=== PATIENT | male | born 1960 | race Two or more races ===

== ENCOUNTER 2023-07-20 04:17 | Inpatient (IN) | payer OTHER, SELFPAY ==
[2023-07-20] VITALS (18 sets, daily range): BP systolic 110–144; BP diastolic 53–86; PULSE 89–130; RESP 12–24; TEMP 36.3–36.9; O2SAT 94–100; BMI 37.1; BMI 37.5
--- NOTE | ~2023-07-20 | US_ITS ---
EXAMINATION: US ABDOMEN LIMITED, bowel duct and main portal vein CLINICAL INFORMATION: Follow-up CT scan 07/20/2023. COMPARISON: CT scan 07/20/2023 TECHNIQUE: Real-time imaging of the right upper quadrant abdominal viscera. FINDINGS: Exam is limited, bowel gas obscures abdominal organs. Nodular surface of the liver suggesting liver parenchymal disease liver cirrhosis. Common bile duct normal diameter 5 mm. There is intrahepatic biliary dilatation. There is a free fluid in the abdomen ascites. There is minimal to no flow seen in the main portal vein raises concern for possible portal vein thrombosis. US/US abdomen limited IMPRESSION: *No flow in the main portal vein suspect portal vein thrombosis. *Heterogeneously echogenic liver, liver cirrhosis. *Ascites. *Mild intra biliary dilatation. Common bile duct is not dilated 5 mm. *consider correlation with follow-up contrast enhanced MRI/MRV.
--- NOTE | ~2023-07-20 | XR_ITS ---
EXAMINATION: XR ABDOMEN KUB CLINICAL INDICATION: Follow-up intestinal obstruction COMPARISON: CT scan from one day earlier. TECHNIQUE: AP view of the abdomen. FINDINGS: Redemonstration of mildly dilated small bowel loops compatible with patient history of obstruction seen on this CT scan. Nasogastric tube in place. Left hip prosthesis in place. Skeletal structures unremarkable. Surgical clips right upper quadrant from prior cholecystectomy. XR/XR abdomen 1V IMPRESSION: Redemonstration of mildly dilated small bowel loops compatible with patient history of small bowel obstruction.
--- NOTE | ~2023-07-20 | NM_ITS ---
Examination: Nuclear medicine GI bleeding scan. CLINICAL INDICATION: Recurrent rectal bleeding. COMPARISON: None. TECHNIQUE: Following labeling of red blood cells with 25 mCi of 90 9M technetium pertechnetate, immediate 4 second per images obtained 1 minute followed by 1 minute images obtained to 60 minutes were obtained over the abdomen. FINDINGS: On immediate perfusion images there is normal activity seen in the spleen and abdominal aorta and common iliac arteries. There is diffuse increase activity seen in pelvis which corresponds to area of likely site of inflammation, hernia and small bowels obstruction site on the recent CT abdomen 07/20/2023.. 1 minute static images no abnormal metabolic activity seen in the bowel loops to suspect any site of bleed. NM/NM GI bleeding IMPRESSION: No definite abnormal GI bleeding site seen at this time. There is mild increase activity seen in the right pelvis which is a suspected site of small bowel obstruction, right abdominal hernia and inflammatory process.
--- NOTE | ~2023-07-20 | XR_ITS ---
EXAMINATION: XR CHEST CLINICAL INFORMATION: Confirmation of NG tube placement COMPARISON: Same day earlier TECHNIQUE: AP upright portable exam of the chest performed at 8:20 AM. FINDINGS: The newly placed lines and gastric tube is in shallow position and need to be advanced. Both tip and port of the tube are in the esophagus. The tube can't be used. The position of infusion catheter is stable with the tip over the SVC. Pacemaker leads are in stable position. Lungs of low volume without infiltrates. Cardiomediastinal silhouette is unremarkable. XR/XR chest 1V IMPRESSION: Malpositioned NG tube, can't be used.
--- NOTE | ~2023-07-20 | CT_ITS ---
EXAMINATION: CT ABDOMEN AND PELVIS WITHOUT CONTRAST CLINICAL INFORMATION: Diffuse abdominal pain, known metastatic colon cancer, question small bowel obstruction COMPARISON: None available. TECHNIQUE: Multidetector volumetric imaging was performed from the superior aspect of the liver through the pubic symphysis. Sagittal and coronal reformatted images were obtained on the technologist's workstation. This CT examination was performed using dose optimization techniques as appropriate, variously including the following: *Automated exposure control *Adjustment of mA and/or kV according to patient size (this includes techniques or standardized protocols for targeted exams where dose is matched to indication/reason for exam; i.e. extremities or head) *Use of iterative reconstruction technique DLP: 855 mGy-cm FINDINGS: LUNG BASES: Several scattered bibasilar lung nodules are present measuring up to 1.2 cm, suspicious for metastases given the clinical history. Coronary artery calcifications are present. LIVER, GALLBLADDER, AND BILIARY TREE: Liver is suboptimally assessed without intravenous contrast. However, there are suspected mildly hypoattenuating right hepatic lobe masses which are not clearly defined though suspicious for hepatic metastases. Several scattered small calcific densities are noted in the left hepatic lobe. Status post cholecystectomy. PANCREAS: Unremarkable. SPLEEN: Enlarged, measuring greater than 17 cm in the axial plane. ADRENAL GLANDS: Slightly thickened right adrenal. Left adrenal gland is unremarkable. KIDNEYS AND URETERS: No hydronephrosis or obstructing calculus bilaterally. BLADDER: Mildly distended and not well evaluated. GASTROINTESTINAL TRACT: There are multiple fluid-filled and gas-filled dilated small bowel loops throughout the mid to lower abdomen in a pattern suspicious for small bowel obstruction. Transition site may occur in the right abdomen where there appears to be operative tapering of a dilated fluid-filled segments with soft tissue thickening and surrounding stranding such as on coronal image 53. Large bowel is nondilated. Appendix appears collapsed. Rectosigmoid suture line noted. Small amount of free fluid is present. No free air is seen. ABDOMINAL WALL: There is a ventral hernia containing multiple segments of small bowel which are not significantly dilated. Fat-containing left inguinal hernia. LYMPH NODES: No significant lymphadenopathy is seen. There is mesenteric stranding and some wispy areas of ill-defined soft tissue attenuation anteriorly in the region of the omentum, which could reflect peritoneal carcinomatosis. VASCULAR: Moderate atherosclerotic calcification. PELVIC VISCERA: Prostate gland appears prominent. OSSEOUS STRUCTURES: Degenerative changes are noted in the spine. Status post left total hip arthroplasty. CT/CT abdomen pelvis wo IV con IMPRESSION: 1. Small bowel obstruction with transition point suspected in the right abdomen. 2. Ventral hernia containing multiple segments of small bowel, without significant dilation. 3. Small amount of free fluid. 4. Multiple bibasilar lung nodules, suspicious for metastases. 5. Hepatic masses also suspicious for metastases, suboptimally assessed without intravenous contrast. 6. Splenomegaly. 7. Ill-defined foci of soft tissue attenuation in the region of the omentum, which could reflect peritoneal carcinomatosis. 8. Coronary artery calcifications. Correlation with cardiac risk factors is recommended.
--- NOTE | ~2023-07-20 | XR_ITS ---
EXAMINATION: XR CHEST CLINICAL INFORMATION: Preop COMPARISON: None available. TECHNIQUE: AP portable view of the chest was obtained. FINDINGS: There is no evidence of acute parenchymal disease, pneumothorax, or pleural effusion. Heart normal size. No evidence of pulmonary edema. Right internal jugular port catheter seen in place with tip of catheter at the cavoatrial junction. Pacemaker seen in place. There is a 1.3 cm circumscribed density seen overlying the posterior aspect of the right sixth rib in patient with history of metastatic colon cancer consistent with metastatic lesion. Other known lung nodules are not definitely identified on this plain film study. Patient appears be status post bilateral shoulder decompressive surgery. XR/XR chest 1V IMPRESSION: No acute disease. Circumscribed density central right chest as described.
--- NOTE | ~2023-07-20 | CT_ITS ---
EXAMINATION: CT ABDOMEN AND PELVIS WITH CONTRAST CLINICAL INFORMATION: Evaluate portal vein thrombus COMPARISON: Previous CT of the abdomen and pelvis 07/20/2023 and limited abdominal ultrasound 07/22/2023 TECHNIQUE: Multidetector volumetric images were obtained from the superior aspect of the liver through the pubic symphysis following administration 85 mL of Omnipaque 350 intravenous contrast. Sagittal and coronal reformatted images were obtained on the technologist's workstation. Oral contrast: Yes This CT examination was performed using dose optimization techniques as appropriate, variously including the following: *Automated exposure control *Adjustment of mA and/or kV according to patient size (this includes techniques or standardized protocols for targeted exams where dose is matched to indication/reason for exam; i.e. extremities or head) *Use of iterative reconstruction technique DLP: 834 mGy-cm FINDINGS: LUNG BASES: Bilateral pulmonary nodules largest measuring 1.2 cm similar to recent exam. Pacemaker AICD leads. Severe coronary artery calcification. LIVER, GALLBLADDER, AND BILIARY TREE: There are multiple low-attenuation liver lesions. Largest lesion is in the central left lobe of the liver measuring 4 x 4.6 cm axial image 22 series 3 and in the right lobe of the liver measuring 4 cm axial image 32 series 3. There is intrahepatic biliary duct dilatation likely secondary to central liver masses, left side greater than right. There are surgical clips and the gallbladder has likely been removed. The splenic vein, SMV, and main portal veins are patent. There may be narrowing of the right and left portal veins in the central liver versus partial occlusion. There is some opacification of the portal veins more peripherally seen in both the right and left lobes of the liver. There is a recannulized paraumbilical vein. There are upper abdominal varices. The hepatic veins are patent. There is a small amount of ascites. PANCREAS: Unremarkable. SPLEEN: Enlarged spleen measuring 18 cm in the axial plane. ADRENAL GLANDS: Slight thickening or nodularity of the right adrenal gland. The left adrenal gland is normal. KIDNEYS AND URETERS: The kidneys are normal in size, shape, and attenuation. No hydronephrosis, hydroureter, or calculi seen. No perinephric stranding. BLADDER: Not optimally distended. GASTROINTESTINAL TRACT: There are surgical clips in the rectosigmoid region. There is diverticulosis of the colon. There is diffuse wall thickening and wall edema of the right transverse and left colon. Appearance is suggestive of mild colitis. The appendix is normal. There is wall thickening of the duodenum. There are fluid-filled loops of more distal small bowel. There is wall thickening and edema of small bowel loops in the right lower quadrant. A large ventral hernia containing fat and loops of small bowel. There is a surgical staple line seen in small bowel loops which are in the neck of the hernia. The neck of the hernia appears wide or broad-based and does not appear to be the site of obstruction. There is diffuse fat stranding and edema of the small bowel mesentery. In comparison with recent exam 07/20/2023 small bowel loops appear less dilated. Wall thickening and edema of small bowel loops and stranding of the small bowel mesentery and ascites all appear increased. ABDOMINAL WALL: There is a large broad-based complex on midline ventral or supraumbilical hernia. Large component is broad-based with a wide neck. There are adjacent smaller components with narrower next. Hernia sacs contain varices, small bowel loops and fat and ascitic fluid. No definite caliber change of a small bowel to confirm this as a site of small bowel obstruction is seen. There is a more inferior umbilical hernia containing fat. There is overlying stranding of the fat and skin thickening over the hernia sacs. There is a left inguinal hernia containing fat and some of the bladder. LYMPH NODES: There are small retroperitoneal lymph nodes. No enlarged lymph nodes are seen. There is what appears to be loculated ascitic fluid superiorly in the gastrohepatic hepatic region for example axial image 29 series 3. VASCULAR: There is atherosclerotic disease. The SMA is patent however there is narrowing of the mid SFA from questionable plaque or difficult to exclude thrombus for example coronal reconstructed images 45-48. The SMV is patent. The JOHN appears very small and difficult to evaluate. There is significant fat stranding and possibly abnormal high attenuation soft tissue seen surrounding the JOHN for example axial image 50 05/27/1961 and coronal reconstructed image 56. There is adjacent amorphous increased attenuation for example axial image 62 series 3 and coronal reconstructed image 57. Appearance is questionable for hemorrhage. Vascular etiology of increasing enterocolitis should be considered. The IMV appears patent. There is a ectasia and plaque in the right common iliac artery measuring up to 1.9 cm for example axial image 69 series 3. PELVIC VISCERA: The prostate gland appears prominent measuring 4 x 5 cm in AP and transverse dimensions. The prostate gland appears diffusely decreased attenuation questionable for prostatitis. OSSEOUS STRUCTURES: There are degenerative changes of the spine. There is a left hip replacement. There are mild degenerative changes at the right hip joint. CT/CT abdomen pelvis w IV con IMPRESSION: Multiple liver suggestive of malignancy. Secondary intrahepatic biliary duct dilatation from central liver masses. Splenic vein, portal splenic confluence and extrahepatic main portal vein are patent. There appears to be narrowing or possibly nonocclusive thrombus of the central right and left main portal veins due to the central liver masses. The more peripheral right and left portal veins appear patent. Patent hepatic veins and IVC. Enlarged spleen. Varices Increased wall thickening and edema of the small and large bowel questionable for enterocolitis. Interval increase in ascites. Abnormal appearance of the SMA and JOHN,.. Possible vascular etiology of increasing enterocolitis should be considered. Correlation with serum lactate recommended. Small bowel appears less dilated than seen on 07/20/2023. Complex abdominal wall hernias and left inguinal hernia containing some of the bladder. Fleischner guidelines were followed. Findings will be communicated by the [facility] pastrycook.
[2023-07-20 05:23] LABS: Basophils Percent Auto 0.5 % (0-2); Eosinophils Absolute Auto 0.1 X10*3/uL (0.0-0.4); Eosinophils Percent Auto 1.1 % (0-4); Hematocrit 41.8 % (42.0-52.0); Hemoglobin 13.6 g/dl (14.0-18.0); Imm Gran Abs Auto 0.03 X10*3/uL (0.00-0.03); Imm Gran Pct Auto 0.3 % (0.0-0.4); Lymphocytes Absolute Auto 0.8 X10*3/uL (1.2-4.9); Lymphocytes Percent Auto 9.5 % (20-40); MANUAL DIFF FLAG NO; Mean Corpuscular HGB Conc 32.5 g/dl (31.0-36.0); Mean Corpuscular Hemoglobin 27.5 pg (27.0-33.0); Mean Corpuscular Volume 84.6 fL (80.0-98.0); Mean Platelet Volume 9.6 fL (9.4-12.4); Monocytes Absolute Auto 0.8 X10*3/uL (0.1-1.2); Monocytes Percent Auto 9.1 % (2-11); Neutrophils Percent Auto 79.5 % (45-73); Platelet Count 252 X10*3/uL (160-400); Red Blood Count 4.94 X10*6/uL (4.60-5.80); Red Cell Distribution Width 19.9 % (11.0-16.0); White Blood Count 8.8 X10*3/uL (4.8-10.8)
[2023-07-20 05:28] LABS: Ammonia 146 umol/L (13-55)
[2023-07-20 05:32] LABS: INTERNATIONAL NORM RATIO 1.4 (0.9-1.1); Prothrombin Time 17.3 SEC (11.1-13.3)
[2023-07-20 05:35] LABS: Ethanol < 10 mg/dL
[2023-07-20 05:37] LABS: Alanine Aminotransferase 63 U/L (0-40); Albumin Level 3.7 g/dL (3.5-5.0); Alkaline Phosphatase 643 U/L (39-117); Anion Gap 19 (12-20); Aspartate Amino Transferase 135 U/L (5-37); Bilirubin Total 10.5 mg/dL (0.0-1.0); Blood Urea Nitrogen 11 mg/dL (9-16); Calcium 10.2 mg/dL (8.4-10.2); Carbon Dioxide 21 mmol/L (22-29); Chloride 102 mmol/L (96-108); Creatinine Clr Calc Pharmacy 69.1; Estimated Glomerular Filt Rate > 60; Glucose Random 113 mg/dL (60-115); Magnesium 2.2 mg/dL (1.6-2.6); Potassium 4.1 mmol/L (3.3-5.1); Sodium 138 mmol/L (135-145); Total Protein 8.1 g/dL (6.5-8.0)
--- NOTE | 2023-07-20 05:40 | ED_ITS ---
HPI - Abdominal Pain General Chief Complaint: Abdominal Pain Stated Complaint: Abdominal Pain Time Seen by Provider: 07/20/23 04:33 Source: other ( girlfriend) Mode of arrival: ambulatory History of Present Illness HPI narrative: This is a 63-year-old male with known metastatic colon CA to the liver who is last chemotherapy appointment was the part of May and he then decided to travel from [place] up to [place] and spent time with his girlfriend because he was tired of going through everything . ago from brings him in evening because he has been having increasing abdominal pain and confusion for the past 2 days. He felt like he might of been constipated and so took milk of magnesia 2 days ago but had increasing pain thereafter with some nausea and vomiting without hematemesis. The girlfriend who the history is obtained from states that the daughter lives in [place] and that the patient had strictly told her not to call his family. even now during starting an IV he keeps saying just let me go, just leave me alone . Related Data Allergies Allergy/AdvReac Type Severity Reaction Status Date / Time Penicillins Allergy Unknown Verified 07/20/23 04:26 Review of Systems Review of Systems pertinent positives and negatives as provided by the girlfriend at bedside. [facility] Past Medical History Source: nursing notes reviewed Social History Social History Advance Directives: No Advance Directives Information Provided: Yes Physical Exam ED Vital Signs: Vital Signs - 24 hr 07/20/23 04:27 07/20/23 05:42 Temperature 97.7 F 97.9 F Pulse Rate 115 H 97 Respiratory Rate 17 18 Blood Pressure 126/86 114/80 Pulse Oximetry 99 95 Oxygen Delivery Method Room Air BMI result Body Mass Index 37.1 VITAL SIGNS: Reviewed. GENERAL: Well developed, well nourished, in no acute distress. HEAD: Normocephalic/atraumatic, EYES: PERRLA, EOMI with icterus EARS: Ext canals without abnormality NOSE: Nares patent bilateral OROPHARYNX: no oral lesions noted, posterior pharynx clear, dry mucosa NECK: Supple, no adenopathy LUNGS: Normal breath sounds. No adventitious sounds or accessory muscle use. SpO2<99> CARDIOVASCULAR: Regular rate and rhythm without noted murmurs ABDOMEN: Soft, non-tender, non-distended with bowel sounds. MUSCULOSKELETAL: No tenderness, deformities, or effusions noted on gross inspection. EXTREMITIES: No cyanosis, clubbing or edema. SKIN: Inspection of the skin reveals no rashes, but jaundice+ NEUROLOGIC: Alert but not oriented. Strength and sensation to light touch were grossly intact x 4. Medical Decision Making Medical Decision Making MDM Narrative: 63-year-old male with suspected elevated ammonia levels and obvious progression of known metastatic colon CA. I suspect that the abdominal pain is likely a ssociated with the colon CA progression, will obtain imaging studies to assess for obstructive evidence. To the best my knowledge at this time patient is a full code. I did instruct the goal friend who is at bedside to contact his daughter who is his listed healthcare proxy. I reviewed all investigations and hematologic indices are negative for evidence of acute infection as there is no leukocytosis, patient is not febrile there is a mild left shift is likely stress-induced otherwise patient has a normocytic anemia and no evidence of thrombocytopenia. Coagulation studies are mildly elevated with an INR- 1.4. Chemistry indices chemistry indices do not show any electric light derangements, there is no TA[place] but there is obvious liver derangements that are consistent with patient's known metastases to the liver, the ammonia level is also noted to be elevated and at this time will hold off on administering lactulose until I establish that patient is not obstructed. Lipase value is pending, patient will be receiving 1 L of IV fluids and will give him pain medication. 0613: I discussed case with General surgery who will be by to see the patient this morning. I have been unable to speak with the daughter at this time as the call went straight to voicemail. 0630: I discussed the case further with Dr. Carmichael who states that at this time patient will be managed conservatively for the SBO, NG will be placed, agrees with lactulose AR. 0630: I also discussed the case in its entirety with inpatient hospitalist who accepts admission. 0630: I discussed the patient's condition and findings with the daughter, who is the healthcare proxy, she has provided her phone number and will be faxing the paperwork for the healthcare proxy as well as patient has advanced directives. Patient is admitted at this time to the Medicine Service with consultation by General surgery, NG is in place, IV fluids and pain medication have been provided. In addition, I did sign the patient out to Dr. Coleman in the event that further arrangements need to be coordinated. Differential Diagnosis Differential Diagnoses: The differential diagnosis associated with the presentation includes please see the discussion above Admission/Observation Consideration of admission/observation: Escalation of care including admission/observation considered please see the discussion above Consult Healthcare Provider Management of the patient was discussed with: Hospitalist Lab Data MDM Lab Attestation statement: I reviewed the patient's lab results. Please see the discussion above 07/20/23 05:16 07/20/23 05:16 Labs: Lab Results 07/20/23 07/20/23 07/20/23 Range/Units 05:16 05:16 05:16 WBC 8.8 (4.8-10.8) X10*3/uL RBC 4.94 (4.60-5.80) X10*6/uL Hgb 13.6 L (14.0-18.0) g/dl Hct 41.8 L (42.0-52.0) % MCV 84.6 (80.0-98.0) fL MCH 27.5 (27.0-33.0) pg MCHC 32.5 (31.0-36.0) g/dl RDW 19.9 H (11.0-16.0) % Plt Count 252 (160-400) X10*3/uL MPV 9.6 (9.4-12.4) fL Immature Gran % (Auto) 0.3 (0.0-0.4) % Neut % (Auto) 79.5 H (45-73) % Lymph % (Auto) 9.5 L (20-40) % [place] % (Auto) 9.1 (2-11) % Eos % (Auto) 1.1 (0-4) % Baso % (Auto) 0.5 (0-2) % Lymph # (Auto) 0.8 L (1.2-4.9) X10*3/uL [place] # (Auto) 0.8 (0.1-1.2) X10*3/uL Eos # (Auto) 0.1 (0.0-0.4) X10*3/uL Baso # (Auto) 0.0 (0.0-0.2) X10*3/uL Abs Immat Gran (auto) 0.03 (0.00-0.03) X10*3/uL Absolute Neuts (auto) 7.0 (2.0-8.3) x10*3/uL Absolute Nucleated RBC 0.000 (0.0-0.012) X10*3/uL Nucleated RBC % (auto) 0.0 (0.0-0.2) /100WBC PT 17.3 H (11.1-13.3) SEC INR 1.4 H (0.9-1.1) APTT 35.0 (26.0-36.4) SEC Sodium (135-145) mmol/L Potassium (3.3-5.1) mmol/L Chloride (96-108) mmol/L Carbon Dioxide (22-29) mmol/L Anion Gap (12-20) BUN (9-16) mg/dL Creatinine (0.5-1.4) mg/dL Estim Creat Clear Calc Estimated GFR Random Glucose (60-115) mg/dL Calcium (8.4-10.2) mg/dL Magnesium (1.6-2.6) mg/dL Total Bilirubin (0.0-1.0) mg/dL AST (5-37) U/L ALT (0-40) U/L Alkaline Phosphatase (39-117) U/L Ammonia 146 H (13-55) umol/L Total Protein (6.5-8.0) g/dL Albumin (3.5-5.0) g/dL Lipase (8-78) U/L Ethyl Alcohol mg/dL 07/20/23 07/20/23 Range/Units 05:16 05:16 WBC (4.8-10.8) X10*3/uL RBC (4.60-5.80) X10*6/uL Hgb (14.0-18.0) g/dl Hct (42.0-52.0) % MCV (80.0-98.0) fL MCH (27.0-33.0) pg MCHC (31.0-36.0) g/dl RDW (11.0-16.0) % Plt Count (160-400) X10*3/uL MPV (9.4-12.4) fL Immature Gran % (Auto) (0.0-0.4) % Neut % (Auto) (45-73) % Lymph % (Auto) (20-40) % [place] % (Auto) (2-11) % Eos % (Auto) (0-4) % Baso % (Auto) (0-2) % Lymph # (Auto) (1.2-4.9) X10*3/uL [place] # (Auto) (0.1-1.2) X10*3/uL Eos # (Auto) (0.0-0.4) X10*3/uL Baso # (Auto) (0.0-0.2) X10*3/uL Abs Immat Gran (auto) (0.00-0.03) X10*3/uL Absolute Neuts (auto) (2.0-8.3) x10*3/uL Absolute Nucleated RBC (0.0-0.012) X10*3/uL Nucleated RBC % (auto) (0.0-0.2) /100WBC PT (11.1-13.3) SEC INR (0.9-1.1) APTT (26.0-36.4) SEC Sodium 138 (135-145) mmol/L Potassium 4.1 (3.3-5.1) mmol/L Chloride 102 (96-108) mmol/L Carbon Dioxide 21 L (22-29) mmol/L Anion Gap 19 (12-20) BUN 11 (9-16) mg/dL Creatinine 1.09 (0.5-1.4) mg/dL Estim Creat Clear Calc 69.1 Estimated GFR > 60 Random Glucose 113 (60-115) mg/dL Calcium 10.2 (8.4-10.2) mg/dL Magnesium 2.2 (1.6-2.6) mg/dL Total Bilirubin 10.5 H (0.0-1.0) mg/dL AST 135 H (5-37) U/L ALT 63 H (0-40) U/L Alkaline Phosphatase 643 H (39-117) U/L Ammonia (13-55) umol/L Total Protein 8.1 H (6.5-8.0) g/dL Albumin 3.7 (3.5-5.0) g/dL Lipase 60 (8-78) U/L Ethyl Alcohol < 10 mg/dL Independent Interpretation I performed an independent interpretation of an: EKG Interpretation: paced rhythm, HR- 96, no STEMI, AR /QRS is within normal limits, QTC-500 Radiology Impression Radiologist Impression: SBO and otherwise my interpretation is in agreement with radiology's impressi on. Chronic Conditions Patient?s care impacted by: Hypertension Medications Administered Discontinued Medications Generic Name Dose Route Start Last Admin Trade Name Freq PRN Reason Stop Dose Admin Sodium Chloride 1,000 mls @ 999 mls/hr 07/20/23 05:45 07/20/23 06:08 Ns IV 07/20/23 06:45 999 mls/hr .Q1H1M PRIYA Administration Morphine Sulfate 2 mg 07/20/23 05:55 07/20/23 06:11 Morphine Sulfate 2 Mg/Ml Cartridge IVPUSH 07/20/23 05:56 2 mg ONCE ONE Administration Protocol Critical Care Time Critical Care Time Critical Care Time: Yes Total Critical Care Time: 45 Attestation: I personally attest to this time spent taking care of the patient. Discharge Plan Discharge Clinical Impression: Encephalopathy due to ammonia, SBO (small bowel obstruction), Metastatic colon cancer to liver Patient Disposition: Admitted As Inpatient
--- NOTE | 2023-07-20 06:05 | ECG_ITS ---
Test Reason : ABD PAIN Blood Pressure : / mmHG Vent. Rate : 096 BPM Atrial Rate : 096 BPM P-R Int : 184 ms QRS Dur : 092 ms QT Int : 396 ms P-R-T Axes : 013 -34 031 degrees QTc Int : 500 ms Atrial-sensed ventricular-paced rhythm Abnormal ECG No previous ECGs available Referred By: Airam Whatley Electronically Signed By:LUISA JHAVERI
[2023-07-20 06:06] LABS: Lipase 60 U/L (8-78)
[2023-07-20] MEDS: 0.9 % Sodium Chloride 1,000 ML 999 ML IV (06:08)
[2023-07-20] MEDS: Morphine Sulfate 2 MG/ML CARTRIDGE IVPUSH (06:11)
--- NOTE | 2023-07-20 06:28 | PC.NURSE ---
Pt BIB girlfriend for abdominal pain and altered mental status. Unable to get IV access in peripheral line, accounts payable specialist attempted but unsuccessful. attempted to put in line with ultrasound, able to draw labs but unsuccessful line placement. This RN was able to access port to [place] with good blood return. IV fluids and pain meds given as ordered. Awaiting call from patients daughter to discuss code status.
--- NOTE | 2023-07-20 07:15 | PC.NURSE ---
patient resting in bed, surg in consulting patient, patients family member at bedside
--- NOTE | 2023-07-20 07:48 | PHA.MEDREC ---
Addendum entered by Chris Peterson 07/20/23 08:11: Patient's girlfriend called back and stated the emdication she forgot was Metoprolol 25mg succ. Added to home med list. Original Note: Pharmacy Consult ? Medication Reconciliation Pharmacy has completed the medication reconciliation. Spoke to patient's girlfriend to confirm meds as patient is confused. Patient's gf mentioned a medication that started with M, but could not finish the medication name and doesn't know the medication's name. Claim history shows metoprolol, but last fill date in August 2022.
--- NOTE | 2023-07-20 07:57 | PC.NURSE ---
NG tube palced in patient, 18 FR, patient tolerated procedure well. positive placement with auscultation, chest xray ordered
[2023-07-20] MEDS: Dextrose 5 % and 0.9 % NaCl 1,000 ML 100 ML IVCONT ×2 (08:12→18:42)
[2023-07-20] MEDS: Haloperidol Lactate 5 MG/ML VIAL IVPUSH ×2 (08:27→09:00)
--- NOTE | 2023-07-20 08:43 | P.CONGS_ITS ---
History of Present Illness Consult details Consult date: 07/20/23 Narrative: 63-year-old male seen in the ER early this morning. He has had abdominal pain for several weeks now. He denies any vomiting. He has a known history of lung cancer with metastatic disease to the liver. He actually is a resident of [place] and is here just for a vacation to visit his long-time girlfriend. He has been undergoing chemotherapy [place] as well because of metastatic disease. He has had admissions in [place] according to the daughter for small-bowel obstruction and had required an NG tube earlier this year. Review of Systems Constitutional: Constitutional: Denies chills and Denies fever(s) Cardiovascular: Cardiovascular: Denies chest pain at rest Respiratory: Respiratory: Denies cough Gastrointestinal: Gastrointestinal: Reports abdominal pain Genitourinary: Genitourinary: Denies difficulty urinating Neurologic: Reports confusion Psychiatric: Psychiatric: Reports confusion PMFSH Past Medical History Medical History Anticoagulant long-term use Hypertension Social History Social History Household Members: Other Household Members Other:: mother [facility] Do you presently have visiting nurse or other home services: No Patient Tobacco Use Status: Never used Tobacco Meds Allergies Allergy/AdvReac Type Severity Reaction Status Date / Time Penicillins Allergy Unknown Verified 07/20/23 04:26 Active Medications: Current Medications Acetaminophen (Acetaminophen Supp 650 Mg Supp.Rect) 650 mg NC Q6H PRN PRN Reason: Pain, Mild (Pain Scale 1-3) Enoxaparin Sodium (Enoxaparin Sodium 40 Mg/0.4 Ml Syringe) 90 mg SUBCUT Q12H PRIYA Dextrose/Sodium Chloride (D5ns) 1,000 mls @ 100 mls/hr IVCONT .Q10H PRIYA Last Admin: 07/20/23 08:12 Dose: 100 mls/hr Lactulose (Lactulose 320 Gm/480 Ml Solution) 200 gm NC Q6H PRIYA Ondansetron HCl (Ondansetron Hcl 4 Mg/2 Ml Vial) 4 mg IVPUSH Q8H PRN PRN Reason: Nausea and Vomiting Sodium Chloride (0.9 % Sodium Chloride Flush 3 Ml Syringe) 3 ml IVFLUSH QSHIFT [facility] Home Medications Medication Instructions Recorded Confirmed Last Taken Type apixaban 5 mg tablet (Eliquis) 5 mg PO BID 07/20/23 07/20/23 07/19/23 History lorazepam 0.5 mg tablet 0.5 mg PO BID PRN Anxiety 07/20/23 07/20/23 Unknown History metoprolol succinate 25 mg 25 mg PO DAILY 07/20/23 07/20/23 07/18/23 History tablet,extended release 24 hr sacubitril 49 mg-valsartan 51 mg 1 tab PO BID 07/20/23 07/20/23 07/19/23 History tablet (Entresto) sildenafil 100 mg tablet 100 mg PO DAILY PRN Erectile 07/20/23 07/20/23 Unknown History Dysfunction Physical Exam Vital Signs: Vital Signs: Last Vital Signs Temp 97.9 F 07/20/23 05:42 Pulse 96 07/20/23 08:00 Resp 23 H 07/20/23 08:00 BP 129/81 07/20/23 08:00 Pulse Ox 100 07/20/23 08:00 O2 Del Method Room Air 07/20/23 08:00 BMI result Body Mass Index 37.1 Const: Other: obese, appears uncomfortable General: confusion Orientation/consciousness: confusion GI: Other: large ventral hernia, reducible Palpation (GI): Soft to palpation, Tenderness to palpation present (GI) (diffuse) and no guarding Neuro: General: confusion Results Labs 07/20/23 05:16 07/20/23 05:16 Labs: Abnormal lab results 07/20/23 07/20/23 07/20/23 Range/Units 05:16 05:16 05:16 Hgb 13.6 L (14.0-18.0) g/dl Hct 41.8 L (42.0-52.0) % RDW 19.9 H (11.0-16.0) % Neut % (Auto) 79.5 H (45-73) % Lymph % (Auto) 9.5 L (20-40) % Lymph # (Auto) 0.8 L (1.2-4.9) X10*3/uL PT 17.3 H (11.1-13.3) SEC INR 1.4 H (0.9-1.1) Carbon Dioxide (22-29) mmol/L Total Bilirubin (0.0-1.0) mg/dL AST (5-37) U/L ALT (0-40) U/L Alkaline Phosphatase (39-117) U/L Ammonia 146 H (13-55) umol/L Total Protein (6.5-8.0) g/dL 07/20/23 Range/Units 05:16 Hgb (14.0-18.0) g/dl Hct (42.0-52.0) % RDW (11.0-16.0) % Neut % (Auto) (45-73) % Lymph % (Auto) (20-40) % Lymph # (Auto) (1.2-4.9) X10*3/uL PT (11.1-13.3) SEC INR (0.9-1.1) Carbon Dioxide 21 L (22-29) mmol/L Total Bilirubin 10.5 H (0.0-1.0) mg/dL AST 135 H (5-37) U/L ALT 63 H (0-40) U/L Alkaline Phosphatase 643 H (39-117) U/L Ammonia (13-55) umol/L Total Protein 8.1 H (6.5-8.0) g/dL Short CBC 07/20/23 Range/Units 05:16 WBC 8.8 (4.8-10.8) X10*3/uL Hgb 13.6 L (14.0-18.0) g/dl Hct 41.8 L (42.0-52.0) % Plt Count 252 (160-400) X10*3/uL BMP 07/20/23 05:16 Sodium 138 Potassium 4.1 Chloride 102 Carbon Dioxide 21 L BUN 11 Creatinine 1.09 Calcium 10.2 Liver Function 07/20/23 Range/Units 05:16 Total Bilirubin 10.5 H (0.0-1.0) mg/dL AST 135 H (5-37) U/L ALT 63 H (0-40) U/L Alkaline Phosphatase 643 H (39-117) U/L Albumin 3.7 (3.5-5.0) g/dL All other labs normal. Laboratory Results WBC 8.8 X10*3/uL (4.8-10.8) 07/20/23 05:16 RBC 4.94 X10*6/uL (4.60-5.80) 07/20/23 05:16 Hgb 13.6 g/dl (14.0-18.0) L 07/20/23 05:16 Hct 41.8 % (42.0-52.0) L 07/20/23 05:16 MCV 84.6 fL (80.0-98.0) 07/20/23 05:16 MCH 27.5 pg (27.0-33.0) 07/20/23 05:16 MCHC 32.5 g/dl (31.0-36.0) 07/20/23 05:16 RDW 19.9 % (11.0-16.0) H 07/20/23 05:16 Plt Count 252 X10*3/uL (160-400) 07/20/23 05:16 MPV 9.6 fL (9.4-12.4) 07/20/23 05:16 Immature Gran % (Auto) 0.3 % (0.0-0.4) 07/20/23 05:16 Neut % (Auto) 79.5 % (45-73) H 07/20/23 05:16 Lymph % (Auto) 9.5 % (20-40) L 07/20/23 05:16 [place] % (Auto) 9.1 % (2-11) 07/20/23 05:16 Eos % (Auto) 1.1 % (0-4) 07/20/23 05:16 Baso % (Auto) 0.5 % (0-2) 07/20/23 05:16 Lymph # (Auto) 0.8 X10*3/uL (1.2-4.9) L 07/20/23 05:16 [place] # (Auto) 0.8 X10*3/uL (0.1-1.2) 07/20/23 05:16 Eos # (Auto) 0.1 X10*3/uL (0.0-0.4) 07/20/23 05:16 Baso # (Auto) 0.0 X10*3/uL (0.0-0.2) 07/20/23 05:16 Abs Immat Gran (auto) 0.03 X10*3/uL (0.00-0.03) 07/20/23 05:16 Absolute Neuts (auto) 7.0 x10*3/uL (2.0-8.3) 07/20/23 05:16 Absolute Nucleated RBC 0.000 X10*3/uL (0.0-0.012) 07/20/23 05:16 Nucleated RBC % (auto) 0.0 /100WBC (0.0-0.2) 07/20/23 05:16 PT 17.3 SEC (11.1-13.3) H 07/20/23 05:16 INR 1.4 (0.9-1.1) H 07/20/23 05:16 APTT 35.0 SEC (26.0-36.4) 07/20/23 05:16 Sodium 138 mmol/L (135-145) 07/20/23 05:16 Potassium 4.1 mmol/L (3.3-5.1) 07/20/23 05:16 Chloride 102 mmol/L (96-108) 07/20/23 05:16 Carbon Dioxide 21 mmol/L (22-29) L 07/20/23 05:16 Anion Gap 19 (12-20) 07/20/23 05:16 BUN 11 mg/dL (9-16) 07/20/23 05:16 Creatinine 1.09 mg/dL (0.5-1.4) 07/20/23 05:16 Estim Creat Clear Calc 69.1 07/20/23 05:16 Estimated GFR > 60 07/20/23 05:16 Random Glucose 113 mg/dL (60-115) 07/20/23 05:16 Calcium 10.2 mg/dL (8.4-10.2) 07/20/23 05:16 Magnesium 2.2 mg/dL (1.6-2.6) 07/20/23 05:16 Total Bilirubin 10.5 mg/dL (0.0-1.0) H 07/20/23 05:16 AST 135 U/L (5-37) H 07/20/23 05:16 ALT 63 U/L (0-40) H 07/20/23 05:16 Alkaline Phosphatase 643 U/L (39-117) H 07/20/23 05:16 Ammonia 146 umol/L (13-55) H 07/20/23 05:16 Total Protein 8.1 g/dL (6.5-8.0) H 07/20/23 05:16 Albumin 3.7 g/dL (3.5-5.0) 07/20/23 05:16 Lipase 60 U/L (8-78) 07/20/23 05:16 Ethyl Alcohol < 10 mg/dL 07/20/23 05:16 Impressions Abdomen/Pelvis CT 07/20/23 06:05 IMPRESSION: 1. Small bowel obstruction with transition point suspected in the right abdomen. 2. Ventral hernia containing multiple segments of small bowel, without significant dilation. 3. Small amount of free fluid. 4. Multiple bibasilar lung nodules, suspicious for metastases. 5. Hepatic masses also suspicious for metastases, suboptimally assessed without intravenous contrast. 6. Splenomegaly. 7. Ill-defined foci of soft tissue attenuation in the region of the omentum, which could reflect peritoneal carcinomatosis. 8. Coronary artery calcifications. Correlation with cardiac risk factors is recommended. Chest X-Ray 07/20/23 08:22 IMPRESSION: Malpositioned NG tube, can't be used. Assessment and Plan (1) SBO (small bowel obstruction): Status: Acute He has been admitted because of abdominal pain without vomiting. He has known advanced metastatic disease to the liver from his colon cancer. He had an resection with a stoma in 2018 in [place] with eventually reversal of his stoma. However, he has had previous admission in [place] as well for small-bowel obstruction requiring an NG tube His CAT scan does does small-bowel obstruction but this appears to be within the abdomen and not from his ventral hernia. The ventral hernia is actually reducible on examination. On CT scan this ventral hernia has a very wide neck and does not appear to be the location of his obstruction. He has radiologic findings that are suggestive as well of carcinomatosis aside from his liver disease I had a long discussion with the patient's daughter Blanca who is the healthcare proxy. The long-time girlfriend is also at bedside. They are aware of the extent of his disease. The appear to be well informed about his small-bowel obstruction says he has had this before. The healthcare proxy Blanca states that she understands the terminal nature of his illness. She had expected stated that she would like to hold off on any surgical intervention. She does state that she would like for the patient to be well enough at least to be brought back home to [place]. The patient has significant encephalopathy from his high ammonia levels as well so lactulose may be given trans rectally because of his small-bowel obstruction. (2) Encephalopathy due to ammonia: Status: Acute (3) Metastatic colon cancer to liver: Status: Acute Time Spent With Patient Time: Total time managing care of this patient today ____ minutes. Procedures Date of Service Date of Service: 07/24/23
--- NOTE | 2023-07-20 09:04 | PC.NURSE ---
patient took ng tube out, NG tube placed back into patient, patient placed into soft restraints, continues with agitation, medicated per CODY carrasquillo at bedside.
--- NOTE | 2023-07-20 09:26 | MHC.EDTECH ---
pt now calm and resting. soft restraints still in place, vss, 1:[address]
--- NOTE | 2023-07-20 09:49 | PC.NURSE ---
pt is showing runs of vtach , he remains verbally repetitive but less physically agitated. Hospitalist has been contacted regarding rhythm changes
[2023-07-20] MEDS: Metoprolol Tartrate 5 MG/5 ML VIAL IVPUSH ×3 (10:21→21:05)
[2023-07-20 10:43] LABS: Magnesium 2.3 mg/dL (1.6-2.6)
--- NOTE | 2023-07-20 11:12 | PC.NURSE ---
patient has had 100 ml of output via NG tube
[2023-07-20] MEDS: Lactulose 320 GM/480 ML SOLUTION 200 GM PR ×3 (12:08→22:45)
--- NOTE | 2023-07-20 12:08 | PC.NURSE ---
patient given lactulose enema, patient tolerated procedure well. patient repositioned in bed, given new pads and linens. patient NG tube intact with good output. patient in soft restraints to reduce pulling at IV and NG tube, family at bedside. Patient respirations equal and unlabored, stomach is less distended and becoming more soft.
--- NOTE | 2023-07-20 12:21 | P.HPHOSP_ITS ---
History of Present Illness Date of Service: 07/20/23 Chief Complaint: abdominal pain A 63 years old male with PMH of Metastatic Colon CA to liver, HTN , PPM on blood thinners who presents to the hospital with abdominal pain and altered mentation. He is visiting from [place], taken a vacation of chemotherapy and came to visit his GF who reports for the last 2 days he has been complaining of worsening pain, nausea and vomiting with no change in bowel habit or fever. She noticed his mentation becoming more altered so he was brought to ED for further eval. CT Scan showed SBO w transitional point but his HCP wants to try supportive measures at this point and avoid surgery. surgical team seems to agree with shyanne t. Ammonia of 125 with altered mentation and agitation. Admitted for further eval and treatment. Review of Systems Review of Systems: Yes Unobtainable due to mental status PMFSH Medical History Anticoagulant long-term use Hypertension Social History Advance Directives: No Advance Directives Information Provided: Yes Meds Allergies Allergy/AdvReac Type Severity Reaction Status Date / Time Penicillins Allergy Unknown Verified 07/20/23 04:26 Active Medications: Current Medications Acetaminophen (Acetaminophen Supp 650 Mg Supp.Rect) 650 mg OH Q6H PRN PRN Reason: Pain, Mild (Pain Scale 1-3) Enoxaparin Sodium (Enoxaparin Sodium 40 Mg/0.4 Ml Syringe) 90 mg SUBCUT Q12H PRIYA Dextrose/Sodium Chloride (D5ns) 1,000 mls @ 100 mls/hr IVCONT .Q10H PRIYA Last Admin: 07/20/23 08:12 Dose: 100 mls/hr Lactulose (Lactulose 320 Gm/480 Ml Solution) 200 gm OH Q6H PRIYA Last Admin: 07/20/23 12:08 Dose: 200 gm Metoprolol Tartrate (Metoprolol Tartrate 5 Mg/5 Ml Vial) 5 mg IVPUSH Q6H PRIYA Last Admin: 07/20/23 10:21 Dose: 5 mg Ondansetron HCl (Ondansetron Hcl 4 Mg/2 Ml Vial) 4 mg IVPUSH Q8H PRN PRN Reason: Nausea and Vomiting Sodium Chloride (0.9 % Sodium Chloride Flush 3 Ml Syringe) 3 ml IVFLUSH QSHIFT PRIYA Last Admin: 07/20/23 09:00 Dose: Not Given Home Medications Medication Instructions Recorded Confirmed Last Taken Type apixaban 5 mg tablet (Eliquis) 5 mg PO BID 07/20/23 07/20/23 07/19/23 History lorazepam 0.5 mg tablet 0.5 mg PO BID PRN Anxiety 07/20/23 07/20/23 Unknown Hi story metoprolol succinate 25 mg 25 mg PO DAILY 07/20/23 07/20/23 07/18/23 History tablet,extended release 24 hr sacubitril 49 mg-valsartan 51 mg 1 tab PO BID 07/20/23 07/20/23 07/19/23 History tablet (Entresto) sildenafil 100 mg tablet 100 mg PO DAILY PRN Erectile 07/20/23 07/20/23 Unknown History Dysfunction Physical Exam Vital Signs and Narrative: Vital Signs: Last Vital Signs Temp 97.9 F 07/20/23 05:42 Pulse 100 07/20/23 12:07 Resp 19 07/20/23 12:07 BP 141/84 H 07/20/23 12:07 Pulse Ox 96 07/20/23 12:07 O2 Del Method Room Air 07/20/23 12:07 BMI result Body Mass Index 37.1 Const: Other: Constitutional : Awake, altered mentation, not in distress Neck : Normal inspection, Supple Cardiovascular : RRR, no JVP, no lower extremity edema Respiratory : good bilateral air entry, no crackles, wheezes or rhonchi Gastrointestinal: soft, lax, decrease bowel sounds, Non tender Skin : Warm, Dry Neurological : Alert & disoriented x2, No focal deficit Results Labs 07/20/23 05:16 07/20/23 05:16 Labs: Laboratory Results - last 24 hr 07/20/23 07/20/23 07/20/23 05:16 05:16 05:16 MCV 84.6 MCH 27.5 MCHC 32.5 RDW 19.9 H Plt Count 252 MPV 9.6 Immature Gran % (Auto) 0.3 Neut % (Auto) 79.5 H Lymph % (Auto) 9.5 L [place] % (Auto) 9.1 Eos % (Auto) 1.1 Baso % (Auto) 0.5 Lymph # (Auto) 0.8 L [place] # (Auto) 0.8 Eos # (Auto) 0.1 Baso # (Auto) 0.0 Abs Immat Gran (auto) 0.03 Absolute Neuts (auto) 7.0 Absolute Nucleated RBC 0.000 Nucleated RBC % (auto) 0.0 PT 17.3 H INR 1.4 H APTT 35.0 Anion Gap Estim Creat Clear Calc Estimated GFR Random Glucose Calcium Magnesium Total Bilirubin AST ALT Alkaline Phosphatase Ammonia 146 H Total Protein Albumin Lipase Ethyl Alcohol 07/20/23 07/20/23 05:16 05:16 MCV MCH MCHC RDW Plt Count MPV Immature Gran % (Auto) Neut % (Auto) Lymph % (Auto) [place] % (Auto) Eos % (Auto) Baso % (Auto) Lymph # (Auto) [place] # (Auto) Eos # (Auto) Baso # (Auto) Abs Immat Gran (auto) Absolute Neuts (auto) Absolute Nucleated RBC Nucleated RBC % (auto) PT INR APTT Anion Gap 19 Estim Creat Clear Calc 69.1 Estimated GFR > 60 Random Glucose 113 Calcium 10.2 Magnesium 2.2 2.3 Total Bilirubin 10.5 H AST 135 H ALT 63 H Alkaline Phosphatase 643 H Ammonia Total Protein 8.1 H Albumin 3.7 Lipase 60 Ethyl Alcohol < 10 Imaging Radiologist's Impressions: Impressions Abdomen/Pelvis CT 07/20/23 06:05 IMPRESSION: 1. Small bowel obstruction with transition point suspected in the right abdomen. 2. Ventral hernia containing multiple segments of small bowel, without significant dilation. 3. Small amount of free fluid. 4. Multiple bibasilar lung nodules, suspicious for metastases. 5. Hepatic masses also suspicious for metastases, suboptimally assessed without intravenous contrast. 6. Splenomegaly. 7. Ill-defined foci of soft tissue attenuation in the region of the omentum, which could reflect peritoneal carcinomatosis. 8. Coronary artery calcifications. Correlation with cardiac risk factors is recommended. Chest X-Ray 07/20/23 06:46 IMPRESSION: No acute disease. Circumscribed density central right chest as described. Chest X-Ray 07/20/23 08:22 IMPRESSION: Malpositioned NG tube, can't be used. Assessment and Plan (1) Anticoagulant long-term use: Status: Acute (2) Encephalopathy due to ammonia: Status: Acute (3) SBO (small bowel obstruction): Status: Acute (4) Metastatic colon cancer to liver: Status: Acute Plan A 63 years old male with PMH of Metastatic Colon CA to liver, HTN , PPM on blood thinners who presents to the hospital with abdominal pain and altered mentation. Small bowel obstruction CT reporting transition point Surgery following; conservative measures for now IVF NPO, NG tube w intremittent suctioning advance diet as tolerated Metastatic colon cancer to liver on Chemo vacation now CT abd concerning for possible new mets to lungs Hepatic encephalopathy 2/2 mets coloc ca to liver elevated ammonia to use OH Lactulose reorientation Hx systolic heart failure s\p PPM Continue Metoprolol IV for now Hold Entresto for now Use Lovenox until he tolerates PO DVT PPx Lovenox The patient will need 2 overnight hospital stay for treatment of SBO and hepatic encephalopathy Time Spent With Patient Time: Total time managing care of this patient today ____ minutes. Quality Stroke Does the patient have a stroke diagnosis?: No VTE Prior VTE?: No VTE Risk Level:: Medical - moderate - high VTE Device Contraindication: Treatment Not Indicated VTE Drug Contraindication: N/A - Med Ordered
--- NOTE | 2023-07-20 13:08 | MHC.EDTECH ---
pt was incontinent of stool. pt was cleaned, clean linen given, clean gown given, warm blanket given, pt is back on soft restraints.
--- NOTE | 2023-07-20 14:29 | PM.EVENT ---
Event Note Date of Service: 07/20/23 Event Note: Seen on afternoon rounds Remains confused Abdomen soft and benign No guarding or rebound He had gotten lactulose early In liver failure Not a surgical candidate Continue current care as per hospitalist service Had a long discussion again with daughter Blanca as well as girlfriend - no surgical interval or other invasive measures to be done Time Spent With Patient Time: Total time managing care of this patient today ____ minutes.
[2023-07-20] MEDS: Enoxaparin Sodium 40 MG/0.4 ML SYRINGE 90 MG SUBCUT (16:33)
[2023-07-20] MEDS: 0.9 % Sodium Chloride Flush 3 ML SYRINGE IVFLUSH (21:05)
[2023-07-21] VITALS (14 sets, daily range): BP systolic 107–143; BP diastolic 56–98; PULSE 77–111; RESP 12–24; TEMP 36.1–37.3; O2SAT 94–98
[2023-07-21] MEDS: Lactulose 320 GM/480 ML SOLUTION 200 GM PR (04:28)
[2023-07-21] MEDS: Metoprolol Tartrate 5 MG/5 ML VIAL IVPUSH ×4 (04:28→23:35)
[2023-07-21] MEDS: Enoxaparin Sodium 40 MG/0.4 ML SYRINGE 90 MG SUBCUT (04:29)
[2023-07-21] MEDS: Dextrose 5 % and 0.9 % NaCl 1,000 ML 100 ML IVCONT ×3 (04:38→23:37)
--- NOTE | 2023-07-21 05:34 | PC.NURSE ---
Patient alert and oriented x name, place and time. Pt calm and cooperative, 2 point restraints removed @ 0430, skin intact, vital signs stable. 1 to 1 sitter present, pt spouse @ bedside.
[2023-07-21 05:41] LABS: Appearance Urine Cloudy; Color Urine Dark Yellow; Glucose Urine UA Negative (Negative); Leukocyte Esterase Urine Small (1+) (Negative); Nitrite Urine Positive (Negative); PH 5.5 (5.0-9.0); UMIC TRIGGER UACC YES; Urine Blood Negative (Negative); Urine Ketones Trace mg/dL (Negative); Urine Protein 30 (1+) mg/dL (Neg-Trace)
[2023-07-21 05:54] LABS: Bacteria Urine None Seen (None Seen); Squamous Epithelial Cell Urine 0-2 /HPF (0-2); UACC Culture Trigger YES
[2023-07-21 06:11] LABS: Hematocrit 32.3 % (42.0-52.0); Hemoglobin 10.3 g/dl (14.0-18.0); Mean Corpuscular HGB Conc 31.9 g/dl (31.0-36.0); Mean Corpuscular Hemoglobin 27.7 pg (27.0-33.0); Mean Corpuscular Volume 86.8 fL (80.0-98.0); Mean Platelet Volume 10.5 fL (9.4-12.4); Platelet Count 208 X10*3/uL (160-400); Red Blood Count 3.72 X10*6/uL (4.60-5.80); Red Cell Distribution Width 20.4 % (11.0-16.0); White Blood Count 8.4 X10*3/uL (4.8-10.8)
--- NOTE | 2023-07-21 06:14 | PM.EVENT ---
Event Note Date of Service: 07/21/23 Event Note: Positive UA, patient started on IV antibiotics given the confusion Time Spent With Patient Time: Total time managing care of this patient today ____ minutes.
[2023-07-21 06:48] LABS: Anion Gap 11 (12-20); Blood Urea Nitrogen 10 mg/dL (9-16); Calcium 8.3 mg/dL (8.4-10.2); Carbon Dioxide 22 mmol/L (22-29); Chloride 113 mmol/L (96-108); Creatinine Clr Calc Pharmacy 78.1; Estimated Glomerular Filt Rate > 60; Glucose Random 115 mg/dL (60-115); Potassium 3.6 mmol/L (3.3-5.1); Sodium 142 mmol/L (135-145)
[2023-07-21] MEDS: cefTRIAXone sodium 1 GM in 0.9 % Sodium Chloride 50 ML IV (07:09)
[2023-07-21] MEDS: 0.9 % Sodium Chloride Flush 3 ML SYRINGE IVFLUSH ×2 (08:01→17:09)
--- NOTE | 2023-07-21 12:51 | P.PNIM_ITS ---
Subjective Subjective Date of Service: 07/21/23 Interval History: Seen and evaluated this morning More alert and interactive Having multiple episodes of blood bowel movements not passing gas Drop in Hb to 10.3 Denies any pain , fever or chills Review of Systems Review of Systems: Yes all other systems are reviewed and are negative Physical Exam Vital Signs: Vital Signs: Last Vital Signs Temp 98.4 F 07/21/23 12:03 Pulse 82 07/21/23 12:03 Resp 14 07/21/23 12:03 BP 132/72 07/21/23 12:03 Pulse Ox 98 07/21/23 11:29 O2 Del Method Room Air 07/21/23 11:29 BMI result Body Mass Index 37.5 Const: Other: Constitutional : Awake, altered mentation, not in distress Neck : Normal inspection, Supple Cardiovascular : RRR, no JVP, no lower extremity edema Respiratory : good bilateral air entry, no crackles, wheezes or rhonchi Gastrointestinal: soft, lax, decrease bowel sounds, Non tender, blood per rectum with clots Skin : Warm, Dry Neurological : Alert & oriented to self and place, No focal deficit Objective Data Active Medications Acetaminophen (Acetaminophen Supp 650 Mg Supp.Rect) 650 mg [place] Q6H PRN PRN Reason: Pain, Mild (Pain Scale 1-3) Enoxaparin Sodium (Enoxaparin Sodium 40 Mg/0.4 Ml Syringe) 90 mg SUBCUT Q12H [facility] Last Admin: 07/21/23 04:29 Dose: 90 mg Documented By: SARAHT Dextrose/Sodium Chloride (D5ns) 1,000 mls @ 100 mls/hr IVCONT .Q10H [facility] Last Admin: 07/21/23 04:38 Dose: 100 mls/hr Documented By: SARATH Ceftriaxone Sodium 1 gm/ (Sodium Chloride) 50 mls @ 100 mls/hr IV Q24H [facility] Last Infusion: 07/21/23 08:00 Dose: 0 mls/hr Documented By: JOHNSON Sodium Chloride (Ns) 100 mls @ 100 mls/hr IV ONCE ONE Stop: 07/21/23 13:47 Sodium Chloride (Ns) 100 mls @ 100 mls/hr IV ONCE ONE Stop: 07/21/23 13:47 Sodium Chloride (Ns) 100 mls @ 100 mls/hr IV ONCE ONE Stop: 07/21/23 13:47 Phytonadione 10 mg/ Sodium (Chloride) 51 mls @ 51 mls/hr IV ONCE ONE Stop: 07/21/23 13:47 Lactulose (Lactulose 320 Gm/480 Ml Solution) 200 gm [place] Q6H [facility] Last Admin: 07/21/23 07:49 Dose: Not Given Documented By: JOHNSON Non-Admin Reason: Physician Held Med Metoprolol Tartrate (Metoprolol Tartrate 5 Mg/5 Ml Vial) 5 mg IVPUSH Q6H [facility] Last Admin: 07/21/23 11:14 Dose: 5 mg Documented By: JOHNSON Ondansetron HCl (Ondansetron Hcl 4 Mg/2 Ml Vial) 4 mg IVPUSH Q8H PRN PRN Reason: Nausea and Vomiting Sodium Chloride (0.9 % Sodium Chloride Flush 3 Ml Syringe) 3 ml IVFLUSH QSHIFT [facility] Last Admin: 07/21/23 08:01 Dose: 3 ml Documented By: JOHNSON Labs 07/21/23 05:59 07/21/23 05:59 Labs: Laboratory Results - last 24 hr 07/21/23 07/21/23 07/21/23 05:04 05:59 05:59 MCV 86.8 MCH 27.7 MCHC 31.9 RDW 20.4 H Plt Count 208 MPV 10.5 Absolute Nucleated RBC 0.000 Nucleated RBC % (auto) 0.0 Anion Gap 11 L Estim Creat Clear Calc 78.1 Estimated GFR > 60 Random Glucose 115 Calcium 8.3 L D Urine Color Dark Yellow Urine Appearance Cloudy Urine pH 5.5 Ur Specific [place] 1.020 Urine Protein 30 (1+) H Urine Glucose (UA) Negative Urine Ketones Trace Urine Blood Negative Urine Nitrite Positive H Ur Leukocyte Esterase Small (1+) H Urine RBC 3-5 H Urine WBC 6-10 H Ur Squamous Epith Cells 0-2 Urine Bacteria None Seen Hyaline Casts 6-10 Blood Type Antibody Screen 07/21/23 08:35 MCV MCH MCHC RDW Plt Count MPV Absolute Nucleated RBC Nucleated RBC % (auto) Anion Gap Estim Creat Clear Calc Estimated GFR Random Glucose Calcium Urine Color Urine Appearance Urine pH Ur Specific [place] Urine Protein Urine Glucose (UA) Urine Ketones Urine Blood Urine Nitrite Ur Leukocyte Esterase Urine RBC Urine WBC Ur Squamous Epith Cells Urine Bacteria Hyaline Casts Blood Type B Negative Antibody Screen NEGATIVE Assessment and Plan (1) Acute blood loss anemia: Status: Acute (2) Anticoagulant long-term use: Status: Acute (3) Encephalopathy due to ammonia: Status: Acute (4) SBO (small bowel obstruction): Status: Acute Plan A 63 years old male with PMH of Metastatic Colon CA to liver, HTN , PPM on blood thinners who presents to the hospital with abdominal pain and altered mentation. Acute blood loss anemia 2/2 GI bleed having blood per rectume with clots Hb dropped to 10 from 13 To give 2 units of blood, 2 units FFP, Vit K GI consult start Pantoprazole IV bid follow CBC Hold anticoagulation for now Small bowel obstruction CT reporting transition point Surgery following; conservative measures for now repeat AXR IVF NPO, NG tube w intremittent suctioning advance diet as tolerated Metastatic colon cancer to liver on Chemo vacation now CT abd concerning for possible new mets to lungs Hepatic encephalopathy 2/2 mets coloc ca to liver improving with [place] Lactulose reorientation Hold Lactulose for bloody bowel motions Hx systolic heart failure s\p PPM Continue Metoprolol IV for now Hold Entresto for now Hold Eliquis DVT PPx SCDs The patient will need overnight hospital stay for treatment of acute blood loss anemia, SBO and hepatic encephalopathy Time Spent With Patient Time: Total time managing care of this patient today ____ minutes. Quality Stroke Does the patient have a stroke diagnosis?: No VTE Prior VTE?: No VTE Risk Level:: Medical - moderate - high VTE Device Contraindication: Treatment Not Indicated VTE Drug Contraindication: N/A - Med Ordered
[2023-07-21 13:22] LABS: Hematocrit 33.2 % (42.0-52.0); Hemoglobin 10.5 g/dl (14.0-18.0); Mean Corpuscular HGB Conc 31.6 g/dl (31.0-36.0); Mean Corpuscular Hemoglobin 27.6 pg (27.0-33.0); Mean Corpuscular Volume 87.4 fL (80.0-98.0); Mean Platelet Volume 9.7 fL (9.4-12.4); Platelet Count 217 X10*3/uL (160-400); Red Cell Distribution Width 20.5 % (11.0-16.0); White Blood Count 8.6 X10*3/uL (4.8-10.8)
[2023-07-21] MEDS: Pantoprazole Sodium 40 MG/10 ML VIAL IVPUSH ×2 (13:58→17:09)
[2023-07-21] MEDS: Phytonadione (Vit K1) 10 MG in 0.9 % Sodium Chloride 50 ML 51 MG IV (14:09)
--- NOTE | 2023-07-21 15:34 | MHC.CM.PN ---
EMR REVIEWED, PT ADMITTED W/ABDOMINAL PAIN, CM ATTEMPTED TO MEET W/RETAIL DEPARTMENT RESET HOWEVER FAMILY AT BEDSIDE AND REPORTED PT DOES NOT NEED AN HOSPITAL UNIT COORDINATOR, PT'S GDTR ANSWERED QUESTIONS PT W/NG TUBE IN PLACE AND SOUNDLY SLEEPING, GDTR REPORTS PT IS STAYING W/HIS MOTHER AND THE PLAN IS TO RETURN TO [place]. PT HAS COLORECTAL CA AND THEY WERE TRYING TO GET A SCRIPT FILLED FOR MORPHINE THAT [facility] WOULD NOT FILL, PT IS INDEP W/ALL CARE, HAS A CANE AT HOME AND NO HOME SERVICES. PER FAMILY PCP IS DR PRUITT IN [place], PT FULLY VACCINATED AGAINST COVID19 AND HCP IS DTR/PRIMARY CONTACT MILKA MONTGOMERY [phone]
[2023-07-21 21:30] LABS: Hematocrit 33.7 % (42.0-52.0); Hemoglobin 10.7 g/dl (14.0-18.0); Mean Corpuscular HGB Conc 31.8 g/dl (31.0-36.0); Mean Corpuscular Hemoglobin 28.2 pg (27.0-33.0); Mean Corpuscular Volume 88.7 fL (80.0-98.0); Mean Platelet Volume 10.2 fL (9.4-12.4); Platelet Count 199 X10*3/uL (160-400); Red Cell Distribution Width 19.9 % (11.0-16.0); White Blood Count 8.6 X10*3/uL (4.8-10.8)
[2023-07-22] VITALS (12 sets, daily range): BP systolic 104–134; BP diastolic 66–84; PULSE 81–94; RESP 14–20; TEMP 36–36.9; O2SAT 95–99
[2023-07-22] MEDS: 0.9 % Sodium Chloride Flush 3 ML SYRINGE IVFLUSH ×3 (01:15→17:00)
[2023-07-22] MEDS: Metoprolol Tartrate 5 MG/5 ML VIAL IVPUSH ×3 (05:57→17:00)
[2023-07-22] MEDS: Pantoprazole Sodium 40 MG/10 ML VIAL IVPUSH ×2 (05:57→17:00)
[2023-07-22] MEDS: cefTRIAXone sodium 1 GM in 0.9 % Sodium Chloride 50 ML IV (06:02)
[2023-07-22 06:24] LABS: Anion Gap 11 (12-20); Blood Urea Nitrogen 13 mg/dL (9-16); Calcium 8.5 mg/dL (8.4-10.2); Carbon Dioxide 23 mmol/L (22-29); Chloride 116 mmol/L (96-108); Creatinine Clr Calc Pharmacy 87.1; Estimated Glomerular Filt Rate > 60; Glucose Random 114 mg/dL (60-115); Sodium 146 mmol/L (135-145)
[2023-07-22 07:06] LABS: Hemoglobin 10.7 g/dl (14.0-18.0); Mean Corpuscular HGB Conc 31.5 g/dl (31.0-36.0); Mean Corpuscular Hemoglobin 27.6 pg (27.0-33.0); Mean Corpuscular Volume 87.9 fL (80.0-98.0); Platelet Count 198 X10*3/uL (160-400); Red Blood Count 3.87 X10*6/uL (4.60-5.80); Red Cell Distribution Width 19.6 % (11.0-16.0); White Blood Count 9.5 X10*3/uL (4.8-10.8)
[2023-07-22 07:48] LABS: Alanine Aminotransferase 34 U/L (0-40); Albumin Level 2.7 g/dL (3.5-5.0); Alkaline Phosphatase 392 U/L (39-117); Aspartate Amino Transferase 64 U/L (5-37); Bilirubin Direct 12.1 mg/dL (0.0-0.5); Bilirubin Total 17.4 mg/dL (0.0-1.0); Total Protein 5.5 g/dL (6.5-8.0)
[2023-07-22] MEDS: Dextrose 5 % 1,000 ML 125 ML IVCONT (10:13)
--- NOTE | 2023-07-22 11:45 | P.PNIM_ITS ---
Subjective Subjective Date of Service: 07/22/23 Interval History: Seen and evaluated this morning More alert and interactive developed hypernatremia of 146 Hb stable at 10.7 after 2 units of blood, received 2 FFP as well still with multiple episodes of blood bowel movements not passing gas Denies any pain , fever or chills Review of Systems Review of Systems: Yes all other systems are reviewed and are negative Physical Exam Vital Signs: Vital Signs: Last Vital Signs Temp 97.7 F 07/22/23 11:08 Pulse 81 07/22/23 11:08 Resp 16 07/22/23 11:08 BP 104/73 07/22/23 11:08 Pulse Ox 98 07/22/23 11:08 O2 Del Method Room Air 07/22/23 11:08 O2 Flow Rate 60 07/21/23 18:53 FiO2 72.0 07/21/23 18:57 BMI result Body Mass Index 37.5 Const: Other: Constitutional : Awake, altered mentation, not in distress Neck : Normal inspection, Supple Cardiovascular : RRR, no JVP, no lower extremity edema Respiratory : good bilateral air entry, no crackles, wheezes or rhonchi Gastrointestinal: soft, lax, increased bowel sounds, Non tender, blood per rectum with clots Skin : Warm, Dry Neurological : Alert & oriented to self and place, No focal deficit Objective Data Active Medications Acetaminophen (Acetaminophen Supp 650 Mg Supp.Rect) 650 mg [place] Q6H PRN PRN Reason: Pain, Mild (Pain Scale 1-3) Enoxaparin Sodium (Enoxaparin Sodium 40 Mg/0.4 Ml Syringe) 90 mg SUBCUT Q12H [facility] Last Admin: 07/21/23 04:29 Dose: 90 mg Documented By: SARATH Ceftriaxone Sodium 1 gm/ (Sodium Chloride) 50 mls @ 100 mls/hr IV Q24H [facility] Last Infusion: 07/22/23 06:38 Dose: 0 mls/hr Documented By: SARATH Dextrose (D5w) 1,000 mls @ 125 mls/hr IVCONT .Q8H [facility] Stop: 07/22/23 15:29 Last Admin: 07/22/23 10:13 Dose: 125 mls/hr Documented By: SOCRATESORRRuddy Lactulose (Lactulose 320 Gm/480 Ml Solution) 200 gm [place] Q6H [facility] Last Admin: 07/22/23 09:25 Dose: Not Given Documented By: JOHNSON Non-Admin Reason: Physician Held Med Metoprolol Tartrate (Metoprolol Tartrate 5 Mg/5 Ml Vial) 5 mg IVPUSH Q6H [facility] Last Admin: 07/22/23 10:14 Dose: 5 mg Documented By: JOHNSON Ondansetron HCl (Ondansetron Hcl 4 Mg/2 Ml Vial) 4 mg IVPUSH Q8H PRN PRN Reason: Nausea and Vomiting Pantoprazole Sodium (Pantoprazole Sodium 40 Mg/10 Ml Vial) 40 mg IVPUSH B [id number] [facility] Last Admin: 07/22/23 05:57 Dose: 40 mg Documented By: SARATH Sodium Chloride (0.9 % Sodium Chloride Flush 3 Ml Syringe) 3 ml IVFLUSH QSHIFT [facility] Last Admin: 07/22/23 10:14 Dose: 3 ml Documented By: JOHNSON Labs 07/22/23 05:52 07/22/23 05:52 Labs: Laboratory Results - last 24 hr 07/21/23 07/21/23 07/21/23 08:35 13:16 21:16 MCV 87.4 88.7 MCH 27.6 28.2 MCHC 31.6 31.8 RDW 20.5 H 19.9 H Plt Count 217 199 MPV 9.7 10.2 Absolute Nucleated RBC 0.000 0.000 Nucleated RBC % (auto) 0.0 0.0 Anion Gap Estim Creat Clear Calc Estimated GFR Random Glucose Calcium Total Bilirubin Direct Bilirubin AST ALT Alkaline Phosphatase Total Protein Albumin Blood Type B Negative Antibody Screen NEGATIVE Crossmatch See Detail 07/22/23 07/22/23 05:52 05:52 MCV 87.9 MCH 27.6 MCHC 31.5 RDW 19.6 H Plt Count 198 MPV 10.0 Absolute Nucleated RBC 0.000 Nucleated RBC % (auto) 0.0 Anion Gap 11 L Estim Creat Clear Calc 87.1 Estimated GFR > 60 Random Glucose 114 Calcium 8.5 Total Bilirubin 17.4 H Direct Bilirubin 12.1 H AST 64 H ALT 34 Alkaline Phosphatase 392 H Total Protein 5.5 L Albumin 2.7 L Blood Type Antibody Screen Crossmatch Microbiology Microbiology Results: Microbiology 07/21/23 06:52 Blood Culture - Preliminary Blood - Venous No growth after 24 hours. 07/21/23 07:03 Blood Culture - Preliminary Blood - Venous No growth after 24 hours. 07/21/23 Unknown Urine Culture - Final Urine Catheterized - Straight Catheter Assessment and Plan (1) Acute blood loss anemia: Status: Acute (2) Hypertension: Status: Acute (3) Anticoagulant long-term use: Status: Acute (4) Encephalopathy due to ammonia: Status: Acute (5) SBO (small bowel obstruction): Status: Acute Plan A 63 years old male with PMH of Metastatic Colon CA to liver, HTN , PPM on blood thinners who presents to the hospital with abdominal pain and altered mentation. Acute blood loss anemia 2/2 GI bleed having blood per rectume with clots Hb stable at 10.7 after 2 units transfusion and 2 units FFP, Vit K To give extra 2 units given ongoing bleeding GI input appreciated, check tagged RBCs and US Abd. Pantoprazole IV bid follow CBC Hold anticoagulation for now Small bowel obstruction CT reporting transition point has slow bowel sounds today Surgery following; conservative measures for now repeat AXR still showing same findings IVF NPO, NG tube w intremittent suctioning advance diet as tolerated Mild Hypernatremia Na of 146 Start D5NaCl Metastatic colon cancer to liver on Chemo vacation now CT abd concerning for possible new mets to lungs Hepatic encephalopathy 2/2 mets coloc ca to liver improving with [place] Lactulose reorientation Hold Lactulose for bloody bowel motions Hx systolic heart failure s\p PPM Continue Metoprolol IV for now Hold Entresto for now Hold Eliquis DVT PPx SCDs The patient will need overnight hospital stay for treatment of acute blood loss anemia, SBO and hepatic encephalopathy Time Spent With Patient Time: Total time managing care of this patient today ____ minutes. Quality Stroke Does the patient have a stroke diagnosis?: No VTE Prior VTE?: No VTE Risk Level:: Medical - moderate - high VTE Device Contraindication: Treatment Not Indicated VTE Drug Contraindication: N/A - Med Ordered
--- NOTE | 2023-07-22 13:09 | PM.GICN ---
History of Present Illness Data of Consult Service Date: 07/22/23 Requesting physician: Dax Herrera Primary Care Provider: Unknown Physician HPI Reason for consult: rectal bleeding 63 years old male with PMH of Metastatic Colon CA to liver, HTN , a-fib and PPM on eliquis who I am seeing for asessment for rectal bleeding. Patient normally lives in [place] where he had been receiving all his care (dx rectal ca 2017 and had surgery,chemo and XRT--recurrence of cancer recently back on chemo but missed few sessions), came to visit GF in but decompensated with confusion, delirium and evidence of bowel obstruction He had been getting lactulose enemas due to confusion and constipation. Since getting there noted to have rectal bleeding with maroon colored stools. His abdominal distention is improving and he feels easier, denies abdominal pain at this time. Confusion also improving. He did have pos UA and is receiving ABx, also receiving PRBC, plasma --randolph had NGT for decompression CT :SBO, ventral hernia, mesenteric and sq stranding, liver lesions -atherosclerosis and spinal degen LAbs: worsening bili, other lft are imroving HGB stabe at around 10 g/dl Review of Systems Review of Systems: Constitutional : No Weight loss, No Fever, No Chills ENT/Mouth : No sore throat, No Rhinorrhea Eyes: No Swelling, No Redness Cardiovascular : No Chest Pain, No SOB, No Edema Respiratory : No Cough, No Sputum, No Wheezing Gastrointestinal : see HPI Genitourinary : NO Dysuria, No Urinary Frequency, No Hematuria, No Urgency Musculoskeletal : No joint pain, No Myalgias, No Joint Swelling Skin : No Skin Lesions, No rash Neuro : + Weakness, No Numbness, No Dizziness, No Headache Psych : No Anxiety/Panic, No Depression Heme/Lymph: No Bruising, No Lymphadenopathy Endocrine : No Polyuria, No Polydipsia All other systems reviewed and are negative. [facility] Past Medical History Medical History Anticoagulant long-term use Hypertension Family History Pertinent family history: HTN Social History Social History Household Members: Other Household Members Other:: mother Housing: Condominium Do you presently have visiting nurse or other home services: No Patient Tobacco Use Status: Never used Tobacco Meds Allergies Allergy/AdvReac Type Severity Reaction Status Date / Time Penicillins Allergy Unknown Verified 07/20/23 04:26 Active Medications: Current Medications Acetaminophen (Acetaminophen Supp 650 Mg Supp.Rect) 650 mg [place] Q6H PRN PRN Reason: Pain, Mild (Pain Scale 1-3) Enoxaparin Sodium (Enoxaparin Sodium 40 Mg/0.4 Ml Syringe) 90 mg SUBCUT Q12H [facility] Last Admin: 07/21/23 04:29 Dose: 90 mg Ceftriaxone Sodium 1 gm/ (Sodium Chloride) 50 mls @ 100 mls/hr IV Q24H [facility] Last Infusion: 07/22/23 06:38 Dose: Infused Dextrose (D5w) 1,000 mls @ 125 mls/hr IVCONT .Q8H [facility] Stop: 07/22/23 15:29 Last Admin: 07/22/23 10:13 Dose: 125 mls/hr Dextrose/Sodium Chloride (D51/4ns) 1,000 mls @ 100 mls/hr IVCONT .Q10H [facility] Lactulose (Lactulose 320 Gm/480 Ml Solution) 200 gm [place] Q6H [facility] Last Admin: 07/22/23 09:25 Dose: Not Given Metoprolol Tartrate (Metoprolol Tartrate 5 Mg/5 Ml Vial) 5 mg IVPUSH Q6H [facility] Last Admin: 07/22/23 10:14 Dose: 5 mg Ondansetron HCl (Ondansetron Hcl 4 Mg/2 Ml Vial) 4 mg IVPUSH Q8H PRN PRN Reason: Nausea and Vomiting Pantoprazole Sodium (Pantoprazole Sodium 40 Mg/10 Ml Vial) 40 mg IVPUSH BID@0630,1630 [facility] Last Admin: 07/22/23 05:57 Dose: 40 mg Sodium Chloride (0.9 % Sodium Chloride Flush 3 Ml Syringe) 3 ml IVFLUSH QSHIFT [facility] Last Admin: 07/22/23 10:14 Dose: 3 ml Home Medications Medication Instructions Recorded Confirmed Last Taken Type apixaban 5 mg tablet (Eliquis) 5 mg PO BID 07/20/23 07/20/23 07/19/23 History lorazepam 0.5 mg tablet 0.5 mg PO BID PRN Anxiety 07/20/23 07/20/23 Unknown History metoprolol succinate 25 mg 25 mg PO DAILY 07/20/23 07/20/23 07/18/23 History tablet,extended release 24 hr sacubitril 49 mg-valsartan 51 mg 1 tab PO BID 07/20/23 07/20/23 07/19/23 History tablet (Entresto) sildenafil 100 mg tablet 100 mg PO DAILY PRN Erectile 07/20/23 07/20/23 Unknown History Dysfunction Physical Exam Vital Signs: Vital Signs: Last Vital Signs Temp 97.7 F 07/22/23 11:08 Pulse 81 07/22/23 11:08 Resp 16 07/22/23 11:08 BP 104/73 07/22/23 11:08 Pulse Ox 98 07/22/23 11:08 O2 Del Method Room Air 07/22/23 11:08 O2 Flow Rate 60 07/21/23 18:53 FiO2 72.0 07/21/23 18:57 BMI result Body Mass Index 37.5 EXAM: GENERAL: The patient is alert, slow cognition but appropriate response, jaundiced VITAL SIGNS:see workflow HEENT: +icteric sclerae, PERRLA, EOMI. Oropharynx clear. Moist mucous membranes. Conjunctivae appear slightly pale. No thyroid mass. CHEST: Chest wall is nontender. HEART: Regular rate and rhythm without murmurs. LUNGS: Clear to auscultation bilaterally. ABDOMEN: Soft, positive bowel sounds, nontender, no organomegaly.no flank tenderness--incisional hernia and scars noted SKIN: No rash, no excessive bruising, petechiae, or purpura. NEUROLOGIC: Cranial nerves II-XII intact without motor/sensory deficit. Psych- slow cognition Results Labs 07/22/23 05:52 07/22/23 05:52 Labs: Short CBC 07/21/23 07/21/23 07/22/23 Range/Units 13:16 21:16 05:52 WBC 8.6 8.6 9.5 (4.8-10.8) X10*3/uL Hgb 10.5 L 10.7 L 10.7 L (14.0-18.0) g/dl Hct 33.2 L 33.7 L 34.0 L (42.0-52.0) % Plt Count 217 199 198 (160-400) X10*3/uL BMP 07/22/23 05:52 Sodium 146 H Potassium 4.0 Chloride 116 H Carbon Dioxide 23 BUN 13 Creatinine 0.87 Calcium 8.5 Liver Function 07/22/23 Range/Units 05:52 Total Bilirubin 17.4 H (0.0-1.0) mg/dL Direct Bilirubin 12.1 H (0.0-0.5) mg/dL AST 64 H (5-37) U/L ALT 34 (0-40) U/L Alkaline Phosphatase 392 H (39-117) U/L Albumin 2.7 L (3.5-5.0) g/dL Microbiology Microbiology Results: Microbiology 07/21/23 06:52 Blood - Venous Blood Culture - Preliminary No growth after 24 hours. 07/21/23 07:03 Blood - Venous Blood Culture - Preliminary No growth after 24 hours. 07/21/23 Unknown Urine Catheterized - Straight Catheter Urine Culture - Final Imaging CT scan - abdomen: My impression: distended loops of bowel, mesenteric/SQ stranding and live4 lesions, atherosclerosis, Assessment and Plan (1) Acute blood loss anemia: Status: Acute (2) Anticoagulant long-term use: Status: Acute (3) SBO (small bowel obstruction): Status: Acute (4) Metastatic colon cancer to liver: Status: Acute Plan 1/ Acute blood loss anemia whilst on NOAC s/p 2 U PRBC and plasma, HGb seems to be stable, bleeding may be from radiation proctopathy or colopathy, hemorrhoids, colonic mass, or less likely upper GI source 2/ Worsening Bili but improving LFT otherwise may be due to ischemic hepatopathy and this may worsen for a few more days before trending down, ddx; biliary obstruction, PVT or budd chairi PLAN: 1/ PPI BID 2/ hold further enemas, BS are normal sounding so the SBO seems to be improving 3/ GI bleeding scan, depedending on this and if ongoing bleeding can consider sigmoidoscopy with APC or EGD if needed 4/ US liver to check for CBD obstruction, biliary compression, PVT etc Time Spent With Patient Time: Total time managing care of this patient today ____ minutes. Procedures Date of Service Date of Service: 07/22/23
[2023-07-22 16:13] LABS: Hematocrit 34.7 % (42.0-52.0); Hemoglobin 10.9 g/dl (14.0-18.0); Mean Corpuscular HGB Conc 31.4 g/dl (31.0-36.0); Mean Corpuscular Hemoglobin 28.2 pg (27.0-33.0); Mean Corpuscular Volume 89.7 fL (80.0-98.0); Mean Platelet Volume 9.9 fL (9.4-12.4); Platelet Count 206 X10*3/uL (160-400); Red Blood Count 3.87 X10*6/uL (4.60-5.80); Red Cell Distribution Width 19.9 % (11.0-16.0); White Blood Count 11.8 X10*3/uL (4.8-10.8)
[2023-07-22] MEDS: Dextrose 5 % and 0.2 % NaCl 1,000 ML 100 ML IVCONT (18:50)
[2023-07-23] VITALS (12 sets, daily range): BP systolic 101–135; BP diastolic 58–87; PULSE 73–98; RESP 16–24; TEMP 36.2–37; O2SAT 96–98
[2023-07-23] MEDS: Metoprolol Tartrate 5 MG/5 ML VIAL IVPUSH ×4 (00:23→21:39)
[2023-07-23] MEDS: 0.9 % Sodium Chloride Flush 3 ML SYRINGE IVFLUSH ×4 (01:34→21:42)
[2023-07-23 07:30] LABS: Anion Gap 13 (12-20); Blood Urea Nitrogen 15 mg/dL (9-16); Calcium 8.2 mg/dL (8.4-10.2); Carbon Dioxide 19 mmol/L (22-29); Chloride 114 mmol/L (96-108); Estimated Glomerular Filt Rate > 60; Glucose Random 89 mg/dL (60-115); Magnesium 1.6 mg/dL (1.6-2.6); Potassium 3.2 mmol/L (3.3-5.1); Sodium 143 mmol/L (135-145)
[2023-07-23] MEDS: Pantoprazole Sodium 40 MG/10 ML VIAL IVPUSH ×2 (07:36→17:27)
[2023-07-23] MEDS: cefTRIAXone sodium 1 GM in 0.9 % Sodium Chloride 50 ML IV (08:57)
[2023-07-23 09:17] LABS: Alanine Aminotransferase 33 U/L (0-40); Albumin Level 2.4 g/dL (3.5-5.0); Alkaline Phosphatase 320 U/L (39-117); Aspartate Amino Transferase 61 U/L (5-37); Bilirubin Direct 8.2 mg/dL (0.0-0.5); Bilirubin Total 11.7 mg/dL (0.0-1.0); Total Protein 4.9 g/dL (6.5-8.0)
--- NOTE | 2023-07-23 11:39 | MHC.CM.PN ---
EMR REVIEWED, PT W/GI BLEED BOWEL OBSTRUCTION, PLAN FOR REMOVAL OF NG TUBE TODAY AND START ORAL INTAKE, NO PLAN FOR D/C AT THIS TIME, CM WILL CONT TO FOLLOW D/C NEEDS. PLAN CONT'S TO BE TO RETURN TO MOTHER[place]S [place] PRIOR TO RETURNING TO [place], FAMILY WILL TRANSPORT
[2023-07-23] MEDS: Potassium Chloride Packet 20 MEQ PACKET 40 MEQ PO (12:36)
--- NOTE | 2023-07-23 13:07 | HO.PM.IMPN ---
Subjective Subjective Date of Service: 07/23/23 Interval History: Seen and evaluated this morning alert and interactive resolved hypernatremia Hb stable at 10.7 after 4 units of blood, received 3 FFP as well Much less blood bowel movements passing gas Denies any pain , fever or chills Review of Systems Review of Systems: Yes all other systems are reviewed and are negative Physical Exam Vital Signs: Vital Signs: Last Vital Signs Temp 98.5 F 07/23/23 11:55 Pulse 73 07/23/23 11:55 Resp 20 07/23/23 11:55 BP 111/65 07/23/23 11:55 Pulse Ox 96 07/23/23 11:55 O2 Del Method Room Air 07/23/23 11:55 O2 Flow Rate 60 07/21/23 18:53 FiO2 72.0 07/21/23 18:57 BMI result Body Mass Index 37.5 Const: Other: Constitutional : Awake, altered mentation, not in distress Neck : Normal inspection, Supple Cardiovascular : RRR, no JVP, no lower extremity edema Respiratory : good bilateral air entry, no crackles, wheezes or rhonchi Gastrointestinal: soft, lax, increased bowel sounds, Non tender, soft periumbilical hernia Skin : Warm, Dry Neurological : Alert & oriented to self and place, No focal deficit Objective Data Active Medications Acetaminophen (Acetaminophen Supp 650 Mg Supp.Rect) 650 mg MA Q6H PRN PRN Reason: Pain, Mild (Pain Scale 1-3) Enoxaparin Sodium (Enoxaparin Sodium 40 Mg/0.4 Ml Syringe) 90 mg SUBCUT Q12H [facility] Last Admin: 07/21/23 04:29 Dose: 90 mg Documented By: SARATH Ceftriaxone Sodium 1 gm/ (Sodium Chloride) 50 mls @ 100 mls/hr IV Q24H [facility] Last Infusion: 07/23/23 11:02 Dose: 0 mls/hr Documented By: JOHNSON Dextrose/Sodium Chloride (D51/4ns) 1,000 mls @ 100 mls/hr IVCONT .Q10H [facility] Last Infusion: 07/23/23 11:02 Dose: 0 mls/hr Documented By: JOHNSON Lactulose (Lactulose 320 Gm/480 Ml Solution) 200 gm MA Q6H [facility] Last Admin: 07/23/23 08:58 Dose: Not Given Documented By: JOHNSON Non-Admin Reason: Physician Held Med Metoprolol Tartrate (Metoprolol Tartrate 5 Mg/5 Ml Vial) 5 mg IVPUSH Q6H [facility] Last Admin: 07/23/23 11:32 Dose: Not Given Documented By: JOHNSON Non-Admin Reason: Previously Administered Ondansetron HCl (Ondansetron Hcl 4 Mg/2 Ml Vial) 4 mg IVPUSH Q8H PRN PRN Reason: Nausea and Vomiting Pantoprazole Sodium (Pantoprazole Sodium 40 Mg/10 Ml Vial) 40 mg IVPUSH BID@0630,1630 [facility] Last Admin: 07/23/23 07:36 Dose: 40 mg Documented By: RUPINDER Sodium Chloride (0.9 % Sodium Chloride Flush 3 Ml Syringe) 3 ml IVFLUSH QSHIFT [facility] Last Admin: 07/23/23 08:57 Dose: 3 ml Documented By: JOHNSON Labs 07/22/23 15:51 07/23/23 06:06 Labs: Laboratory Results - last 24 hr 07/21/23 07/22/23 07/23/23 08:35 15:51 06:06 MCV 89.7 MCH 28.2 MCHC 31.4 RDW 19.9 H Plt Count 206 MPV 9.9 Absolute Nucleated RBC 0.000 Nucleated RBC % (auto) 0.0 Anion Gap 13 Estim Creat Clear Calc 101.0 Estimated GFR > 60 Random Glucose 89 Calcium 8.2 L Magnesium 1.6 Total Bilirubin 11.7 H Direct Bilirubin 8.2 H AST 61 H ALT 33 Alkaline Phosphatase 320 H Total Protein 4.9 L Albumin 2.4 L Blood Type B Negative Antibody Screen NEGATIVE Crossmatch See Detail Microbiology Microbiology Results: Microbiology 07/21/23 06:52 Blood Culture - Preliminary Blood - Venous No growth after 48 hours. 07/21/23 07:03 Blood Culture - Preliminary Blood - Venous No growth after 48 hours. Assessment and Plan (1) Acute blood loss anemia: Status: Acute (2) Anticoagulant long-term use: Status: Acute (3) Encephalopathy due to ammonia: Status: Acute (4) SBO (small bowel obstruction): Status: Acute (5) Metastatic colon cancer to liver: Status: Acute Plan A 63 years old male with PMH of Metastatic Colon CA to liver, HTN , PPM on blood thinners who presents to the hospital with abdominal pain and altered mentation. Acute blood loss anemia 2/2 GI bleed stopped overnight Hb stable at 10.7 after 4 units transfusion and 3 units FFP, Vit K tagged RBCs Did not show focal point of bleeding US Abd show portal vein thrombosis GI input appreciated, do CT abd w contrast continue Pantoprazole IV bid follow CBC Hold anticoagulation for now Small bowel obstruction has slow bowel sounds today and passing gas CT reporting transition point , repeat AXR showing intestinal dilatation Surgery following; conservative measures, remove NG IVF NPO w sips of liquids, advance diet as tolerated Mild Hypernatremia Na of 143 continue D5NaCl acute hypokalemia K of 3.2, give PO replacement Metastatic colon cancer to liver on Chemo vacation now CT abd concerning for possible new mets to lungs Hepatic encephalopathy 2/2 mets coloc ca to liver improving with MA Lactulose reorientation Hold Lactulose for bloody bowel motions Hx systolic heart failure s\p PPM Continue Metoprolol IV for now Hold Entresto for now Hold Eliquis DVT PPx SCDs The family is looking for improvement in his clinical condition so he can travel back to [place] with them and they are hesitant for any surgical intervention at this stage. The patient will need overnight hospital stay for treatment of acute blood loss anemia, SBO and hepatic encephalopathy Time Spent With Patient Time: Total time managing care of this patient today ____ minutes. Quality Stroke Does the patient have a stroke diagnosis?: No VTE Prior VTE?: No VTE Risk Level:: Medical - moderate - high VTE Device Contraindication: Treatment Not Indicated VTE Drug Contraindication: N/A - Med Ordered
--- NOTE | 2023-07-23 13:11 | P.PNGS_ITS ---
Subjective Subjective Date of Service: 07/23/23 Interval history: Has had no significant output from the NG tube No further episodes of GI bleed Remains drowsy Physical Exam Vital Signs: Vital Signs: Last Vital Signs Temp 98.5 F 07/23/23 11:55 Pulse 73 07/23/23 11:55 Resp 20 07/23/23 11:55 BP 111/65 07/23/23 11:55 Pulse Ox 96 07/23/23 11:55 O2 Del Method Room Air 07/23/23 11:55 O2 Flow Rate 60 07/21/23 18:53 FiO2 72.0 07/21/23 18:57 BMI result Body Mass Index 37.5 Const: Other: Drowsy General: no acute distress Resp: Other: Mild shortness of breath Cardio: Rhythm: regular rhythm GI: Other: Soft, distended, no guarding rebound, large hernia Objective Data Active Medications Acetaminophen (Acetaminophen Supp 650 Mg Supp.Rect) 650 mg [place] Q6H PRN PRN Reason: Pain, Mild (Pain Scale 1-3) Enoxaparin Sodium (Enoxaparin Sodium 40 Mg/0.4 Ml Syringe) 90 mg SUBCUT Q12H [facility] Last Admin: 07/21/23 04:29 Dose: 90 mg Documented By: SARATH Ceftriaxone Sodium 1 gm/ (Sodium Chloride) 50 mls @ 100 mls/hr IV Q24H [facility] Last Infusion: 07/23/23 11:02 Dose: 0 mls/hr Documented By: JOHNSON Dextrose/Sodium Chloride (D51/4ns) 1,000 mls @ 100 mls/hr IVCONT .Q10H [facility] Last Infusion: 07/23/23 11:02 Dose: 0 mls/hr Documented By: JOHNSON Lactulose (Lactulose 320 Gm/480 Ml Solution) 200 gm [place] Q6H [facility] Last Admin: 07/23/23 08:58 Dose: Not Given Documented By: JOHNSON Non-Admin Reason: Physician Held Med Metoprolol Tartrate (Metoprolol Tartrate 5 Mg/5 Ml Vial) 5 mg IVPUSH Q6H [facility] Last Admin: 07/23/23 11:32 Dose: Not Given Documented By: JOHNSON Non-Admin Reason: Previously Administered Ondansetron HCl (Ondansetron Hcl 4 Mg/2 Ml Vial) 4 mg IVPUSH Q8H PRN PRN Reason: Nausea and Vomiting Pantoprazole Sodium (Pantoprazole Sodium 40 Mg/10 Ml Vial) 40 mg IVPUSH BID@0630,1630 [facility] Last Admin: 07/23/23 07:36 Dose: 40 mg Documented By: NADERTRMarely Sodium Chloride (0.9 % Sodium Chloride Flush 3 Ml Syringe) 3 ml IVFLUSH QSHIFT [facility] Last Admin: 07/23/23 08:57 Dose: 3 ml Documented By: CTORRZ Labs 07/22/23 15:51 07/23/23 06:06 Labs: Laboratory Results - last 24 hr 07/21/23 07/22/23 07/23/23 08:35 15:51 06:06 MCV 89.7 MCH 28.2 MCHC 31.4 RDW 19.9 H Plt Count 206 MPV 9.9 Absolute Nucleated RBC 0.000 Nucleated RBC % (auto) 0.0 Anion Gap 13 Estim Creat Clear Calc 101.0 Estimated GFR > 60 Random Glucose 89 Calcium 8.2 L Magnesium 1.6 Total Bilirubin 11.7 H Direct Bilirubin 8.2 H AST 61 H ALT 33 Alkaline Phosphatase 320 H Total Protein 4.9 L Albumin 2.4 L Blood Type B Negative Antibody Screen NEGATIVE Crossmatch See Detail Microbiology Microbiology Results: Microbiology 07/21/23 06:52 Blood Culture - Preliminary Blood - Venous No growth after 48 hours. 07/21/23 07:03 Blood Culture - Preliminary Blood - Venous No growth after 48 hours. Procedures Date of Service Date of Service: 07/23/23 Progress Note: A&P Assessment and plan (1) SBO (small bowel obstruction): Status: Acute Assessment and Plan: Okay to DC NG tube - patient apparently passing flatus, no significant output for the past 2 days from the NG tube Abdomen soft As per family at bedside -no further invasive interventions Family's goal is to be able to bring him home to [place] Time Spent With Patient Time: Total time managing care of this patient today ____ minutes. Quality Stroke Does the patient have a stroke diagnosis?: No VTE Prior VTE?: No VTE Risk Level:: Medical - moderate - high VTE Device Contraindication: Treatment Not Indicated VTE Drug Contraindication: N/A - Med Ordered
[2023-07-23] MEDS: iohexoL 350 MG/ML 100 ML INFUS..BTL IV (13:59)
[2023-07-23] MEDS: Dextrose 5 % and 0.2 % NaCl 1,000 ML 100 ML IVCONT (17:30)
--- NOTE | 2023-07-23 17:33 | P.PNGI_ITS ---
Subjective Subjective Date of Service: 07/23/23 Interval History: much more alert v talkative no abdominal pain, minimal NG o/p passing gas and wants to eat bleeding less now Critical Care Time (minutes): 0 Physical Exam Vital Signs: Vital Signs: Last Vital Signs Temp 97.2 F 07/23/23 15:11 Pulse 91 07/23/23 15:11 Resp 20 07/23/23 15:11 BP 135/79 07/23/23 15:11 Pulse Ox 98 07/23/23 15:11 O2 Del Method Room Air 07/23/23 15:11 O2 Flow Rate 60 07/21/23 18:53 FiO2 72.0 07/21/23 18:57 BMI result Body Mass Index 37.5 EXAM: GENERAL: The patient is well developed and nontoxic.Jaundiced VITAL SIGNS:see workflow HEENT: +icteric sclerae, PERRLA, EOMI. Oropharynx clear. Moist mucous membranes. Conjunctivae appear well perfused. No thyroid mass. CHEST: Chest wall is nontender. HEART: Regular rate and rhythm without murmurs. LUNGS: Clear to auscultation bilaterally. ABDOMEN: Soft, positive bowel sounds, nontender, no organomegaly.no flank tenderness--abdo wall hernia noted SKIN: No rash, no excessive bruising, petechiae, or purpura. NEUROLOGIC: Cranial nerves II-XII intact without motor/sensory deficit. Psych: Appearance: grossly normal Objective Data Labs 07/22/23 15:51 07/23/23 06:06 Labs: Laboratory Results - last 24 hr 07/21/23 07/23/23 08:35 06:06 Sodium 143 Potassium 3.2 L Chloride 114 H Carbon Dioxide 19 L Anion Gap 13 BUN 15 Creatinine 0.75 Estim Creat Clear Calc 101.0 Estimated GFR > 60 Random Glucose 89 Calcium 8.2 L Magnesium 1.6 Total Bilirubin 11.7 H Direct Bilirubin 8.2 H AST 61 H ALT 33 Alkaline Phosphatase 320 H Total Protein 4.9 L Albumin 2.4 L Blood Type B Negative Antibody Screen NEGATIVE Crossmatch See Detail Microbiology Microbiology Results: Microbiology 07/21/23 06:52 Blood - Venous Blood Culture - Preliminary No growth after 48 hours. 07/21/23 07:03 Blood - Venous Blood Culture - Preliminary No growth after 48 hours. 07/21/23 Unknown Urine Catheterized - Straight Catheter Urine Culture - Fin al Procedures Date of Service Date of Service: 07/23/23 Progress Note: A&P Assessment and plan (1) Acute blood loss anemia: Status: Acute (2) SBO (small bowel obstruction): Status: Acute Plan 1/ SBO 2/2 to hernia 2/ Possible PVT on doppler 3/ Bili coming down, more suggestive of ischemic hepatopathy 4/ GI Bleed, slowing down PLAN: 1/ CT IV contrast to eval PV, ?malignant thrombus vs false pos on the doppler 2/ sigmoidoscopy tomorrow, 3/ hold AC for the moment Time Spent With Patient Time: Total time managing care of this patient today ____ minutes. Quality Stroke Does the patient have a stroke diagnosis?: No VTE Prior VTE?: No VTE Risk Level:: Medical - moderate - high VTE Device Contraindication: Treatment Not Indicated VTE Drug Contraindication: N/A - Med Ordered
[2023-07-24] VITALS (9 sets, daily range): BP systolic 97–141; BP diastolic 63–93; PULSE 61–92; RESP 14–18; TEMP 36.2–37.4; O2SAT 95–99
[2023-07-24] MEDS: cefTRIAXone sodium 1 GM in 0.9 % Sodium Chloride 50 ML IV (06:24)
[2023-07-24] MEDS: Pantoprazole Sodium 40 MG/10 ML VIAL IVPUSH (06:24)
[2023-07-24] MEDS: Metoprolol Tartrate 5 MG/5 ML VIAL IVPUSH ×2 (06:24→09:31)
[2023-07-24 07:11] LABS: Hematocrit 29.7 % (42.0-52.0); Hemoglobin 9.8 g/dl (14.0-18.0); Mean Corpuscular Hemoglobin 28.3 pg (27.0-33.0); Mean Corpuscular Volume 85.8 fL (80.0-98.0); Mean Platelet Volume 9.7 fL (9.4-12.4); Platelet Count 127 X10*3/uL (160-400); Red Blood Count 3.46 X10*6/uL (4.60-5.80); Red Cell Distribution Width 18.6 % (11.0-16.0); White Blood Count 8.5 X10*3/uL (4.8-10.8)
[2023-07-24 07:29] LABS: Alanine Aminotransferase 30 U/L (0-40); Albumin Level 2.4 g/dL (3.5-5.0); Alkaline Phosphatase 332 U/L (39-117); Anion Gap 10 (12-20); Aspartate Amino Transferase 61 U/L (5-37); Bilirubin Direct 6.9 mg/dL (0.0-0.5); Bilirubin Total 9.4 mg/dL (0.0-1.0); Blood Urea Nitrogen 13 mg/dL (9-16); Calcium 8.3 mg/dL (8.4-10.2); Carbon Dioxide 21 mmol/L (22-29); Chloride 111 mmol/L (96-108); Creatinine Clr Calc Pharmacy 92.4; Estimated Glomerular Filt Rate > 60; Glucose Random 89 mg/dL (60-115); Potassium 3.2 mmol/L (3.3-5.1); Sodium 139 mmol/L (135-145); Total Protein 5.1 g/dL (6.5-8.0)
[2023-07-24] MEDS: Potassium Chloride Packet 20 MEQ PACKET 40 MEQ PO (09:32)
[2023-07-24] MEDS: Dextrose 5 % and 0.2 % NaCl 1,000 ML 100 ML IVCONT (09:33)
[2023-07-24] MEDS: 0.9 % Sodium Chloride Flush 3 ML SYRINGE IVFLUSH ×2 (09:33→17:57)
--- NOTE | 2023-07-24 13:00 | P.PNGS_ITS ---
Subjective Subjective Date of Service: 07/24/23 Interval history: NG tube removed yesterday No reported nausea or vomiting Passing flatus Physical Exam Vital Signs: Vital Signs: Last Vital Signs Temp 98 F 07/24/23 11:23 Pulse 79 07/24/23 11:23 Resp 18 07/24/23 11:23 BP 97/69 07/24/23 11:23 Pulse Ox 95 07/24/23 11:23 O2 Del Method Room Air 07/24/23 11:23 O2 Flow Rate 60 07/21/23 18:53 FiO2 72.0 07/21/23 18:57 BMI result Body Mass Index 37.5 Const: Other: Answering some questions General: comfortable and no acute distress Resp: Other: Mild shortness of breath GI: Palpation (GI): Soft to palpation Objective Data Active Medications Acetaminophen (Acetaminophen Supp 650 Mg Supp.Rect) 650 mg [place] Q6H PRN PRN Reason: Pain, Mild (Pain Scale 1-3) Enoxaparin Sodium (Enoxaparin Sodium 40 Mg/0.4 Ml Syringe) 90 mg SUBCUT Q12H [facility] Last Admin: 07/21/23 04:29 Dose: 90 mg Documented By: SARATH Ceftriaxone Sodium 1 gm/ (Sodium Chloride) 50 mls @ 100 mls/hr IV Q24H [facility] Last Infusion: 07/24/23 08:34 Dose: 0 mls/hr Documented By: RUPINDER Dextrose/Sodium Chloride (D51/4ns) 1,000 mls @ 100 mls/hr IVCONT .Q10H [facility] Last Admin: 07/24/23 09:33 Dose: 100 mls/hr Documented By: JOHNSON Lactulose (Lactulose 320 Gm/480 Ml Solution) 200 gm IA Q6H [facility] Last Admin: 07/24/23 06:19 Dose: Not Given Documented By: RUPINDER Non-Admin Reason: Physician Held Med Metoprolol Tartrate (Metoprolol Tartrate 5 Mg/5 Ml Vial) 5 mg IVPUSH Q6H [facility] Last Admin: 07/24/23 09:31 Dose: 5 mg Documented By: JOHNSON Ondansetron HCl (Ondansetron Hcl 4 Mg/2 Ml Vial) 4 mg IVPUSH Q8H PRN PRN Reason: Nausea and Vomiting Sodium Chloride (0.9 % Sodium Chloride Flush 3 Ml Syringe) 3 ml IVFLUSH QSHIFT [facility] Last Admin: 07/24/23 09:33 Dose: 3 ml Documented By: JOHNSON Labs 07/24/23 06:18 07/24/23 06:18 Labs: Laboratory Results - last 24 hr 07/24/23 07/24/23 06:18 06:18 MCV 85.8 MCH 28.3 MCHC 33.0 RDW 18.6 H Plt Count 127 L D MPV 9.7 Absolute Nucleated RBC 0.000 Nucleated RBC % (auto) 0.0 Anion Gap 10 L Estim Creat Clear Calc 92.4 Estimated GFR > 60 Random Glucose 89 Calcium 8.3 L Total Bilirubin 9.4 H Direct Bilirubin 6.9 H AST 61 H ALT 30 Alkaline Phosphatase 332 H Total Protein 5.1 L Albumin 2.4 L Microbiology Microbiology Results: Microbiology 07/21/23 06:52 Blood Culture - Preliminary Blood - Venous No growth after 48 hours. 07/21/23 07:03 Blood Culture - Preliminary Blood - Venous No growth after 48 hours. Procedures Date of Service Date of Service: 07/24/23 Progress Note: A&P Assessment and plan (1) SBO (small bowel obstruction): Status: Acute Assessment and Plan: Clinically resolved Okay for clear liquids and advance as tolerated As per family - no invasive measures; they just want him to be able to go home and fly back to [place] Daughter says that he is scheduled for flex sig today Time Spent With Patient Time: Total time managing care of this patient today ____ minutes. Quality Stroke Does the patient have a stroke diagnosis?: No VTE Prior VTE?: No VTE Risk Level:: Medical - moderate - high VTE Device Contraindication: Treatment Not Indicated VTE Drug Contraindication: N/A - Med Ordered
--- NOTE | 2023-07-24 13:18 | P.PNIM_ITS ---
Subjective Subjective Date of Service: 07/24/23 Interval History: Seen this morning alert and interactive Hb dropped to 9.8 after 4 units of blood, received 3 FFP as well, No reported bloody bowel movements last month Bili trending down passing gas Denies any pain , fever or chills Review of Systems Review of Systems: Yes all other systems are reviewed and are negative Physical Exam 2 Vital Signs: Vital Signs: Last Vital Signs Temp 98 F 07/24/23 11:23 Pulse 79 07/24/23 11:23 Resp 18 07/24/23 11:23 BP 97/69 07/24/23 11:23 Pulse Ox 95 07/24/23 11:23 O2 Del Method Room Air 07/24/23 11:23 O2 Flow Rate 60 07/21/23 18:53 FiO2 72.0 07/21/23 18:57 BMI result Body Mass Index 37.5 Const: Other: Constitutional : Awake, altered mentation, not in distress Neck : Normal inspection, Supple Eye: Jaundice Cardiovascular : RRR, no JVP, no lower extremity edema Respiratory : good bilateral air entry, no crackles, wheezes or rhonchi Gastrointestinal: soft, lax, increased bowel sounds, Non tender, soft periumbilical hernia Skin : Warm, Dry Neurological : Alert & oriented to self and place, No focal deficit Objective Data Active Medications Acetaminophen (Acetaminophen Supp 650 Mg Supp.Rect) 650 mg [place] Q6H PRN PRN Reason: Pain, Mild (Pain Scale 1-3) Enoxaparin Sodium (Enoxaparin Sodium 40 Mg/0.4 Ml Syringe) 90 mg SUBCUT Q12H [facility] Last Admin: 07/21/23 04:29 Dose: 90 mg Documented By: SARATH Ceftriaxone Sodium 1 gm/ (Sodium Chloride) 50 mls @ 100 mls/hr IV Q24H [facility] Last Infusion: 07/24/23 08:34 Dose: 0 mls/hr Documented By: RUPINDER Dextrose/Sodium Chloride (D51/4ns) 1,000 mls @ 100 mls/hr IVCONT .Q10H [facility] Last Admin: 07/24/23 09:33 Dose: 100 mls/hr Documented By: SOCRATESORRRuddy Lactulose (Lactulose 320 Gm/480 Ml Solution) 200 gm ND Q6H [facility] Last Admin: 07/24/23 06:19 Dose: Not Given Documented By: RUPINDER Non-Admin Reason: Physician Held Med Metoprolol Tartrate (Metoprolol Tartrate 5 Mg/5 Ml Vial) 5 mg IVPUSH Q6H [facility] Last Admin: 07/24/23 09:31 Dose: 5 mg Documented By: JOHNSON Ondansetron HCl (Ondansetron Hcl 4 Mg/2 Ml Vial) 4 mg IVPUSH Q8H PRN PRN Reason: Nausea and Vomiting Sodium Chloride (0.9 % Sodium Chloride Flush 3 Ml Syringe) 3 ml IVFLUSH QSHIFT [facility] Last Admin: 07/24/23 09:33 Dose: 3 ml Documented By: JOHNSON Labs 07/24/23 06:18 07/24/23 06:18 Labs: Laboratory Results - last 24 hr 07/24/23 07/24/23 06:18 06:18 MCV 85.8 MCH 28.3 MCHC 33.0 RDW 18.6 H Plt Count 127 L D MPV 9.7 Absolute Nucleated RBC 0.000 Nucleated RBC % (auto) 0.0 Anion Gap 10 L Estim Creat Clear Calc 92.4 Estimated GFR > 60 Random Glucose 89 Calcium 8.3 L Total Bilirubin 9.4 H Direct Bilirubin 6.9 H AST 61 H ALT 30 Alkaline Phosphatase 332 H Total Protein 5.1 L Albumin 2.4 L Assessment and Plan (1) Acute blood loss anemia: Status: Acute (2) SBO (small bowel obstruction): Status: Acute (3) Metastatic colon cancer to liver: Status: Acute (4) GI bleed: Status: Acute Plan A 63 years old male with PMH of Metastatic Colon CA to liver, HTN , PPM on blood thinners who presents to the hospital with abdominal pain and altered mentation. Acute blood loss anemia 2/2 GI bleed No more bleeding last 24 hours Hb mild drop to 9.8 after 4 units transfusion and 3 units FFP, Vit K tagged RBCs Did not show focal point of bleeding US Abd show portal vein thrombosis CT abd w contrast showing narrow portal vein but seems patent\partial narrowing or thrombus. varices, increased wall thickening of possible vascular etiology w abnormal looking SMA and JOHN GI input appreciated, do Sigmoidoscopy today continue Pantoprazole IV bid follow CBC Hold anticoagulation for now Small bowel obstruction CT reported transition point on admission , repeated AXR showed intestinal dilatation Today, slow bowel sounds and passing gas Surgery following; conservative measures, remove NG DC IVF advance diet as tolerated, clears today Mild Hypernatremia Na of 138 continue D5NaCl acute hypokalemia K of 3.2, give PO replacement Metastatic colon cancer to liver on Chemo vacation now CT abd concerning for possible new mets to lungs Hepatic encephalopathy 2/2 mets coloc ca to liver improving with ND Lactulose reorientation Hold Lactulose for bloody bowel motions Hx systolic heart failure s\p PPM Continue Metoprolol IV for now Hold Entresto for now Hold Eliquis DVT PPx SCDs The family is looking for improvement in his clinical condition so he can travel back to [place] with them and they are hesitant for any surgical intervention at this stage. The patient will need overnight hospital stay for treatment of acute blood loss anemia, SBO and hepatic encephalopathy Time Spent With Patient Time: Total time managing care of this patient today ____ minutes. Quality Stroke Does the patient have a stroke diagnosis?: No VTE Prior VTE?: No VTE Risk Level:: Medical - moderate - high VTE Device Contraindication: Treatment Not Indicated VTE Drug Contraindication: N/A - Med Ordered
--- NOTE | 2023-07-24 15:29 | PM.GIPN ---
Subjective Subjective Date of Service: 07/24/23 Interval History: denies any further bleeding no nausea or vomiting passing gas ok, feels hungry Ct with possible narrowing of PV from tumour masses vs non occlusive clot Critical Care Time (minutes): 0 Physical Exam Vital Signs: Vital Signs: Last Vital Signs Temp 97.5 F 07/24/23 14:42 Pulse 85 07/24/23 14:42 Resp 18 07/24/23 14:42 BP 104/71 07/24/23 14:42 Pulse Ox 97 07/24/23 14:42 O2 Del Method Room Air 07/24/23 14:42 O2 Flow Rate 60 07/21/23 18:53 FiO2 72.0 07/21/23 18:57 BMI result Body Mass Index 37.5 EXAM: GENERAL: The patient is relaxed VITAL SIGNS:see workflow HEENT: Nonicteric sclerae, PERRLA, EOMI. Oropharynx clear. Moist mucous membranes. Conjunctivae appear well perfused. No thyroid mass. CHEST: Chest wall is nontender. HEART: Regular rate and rhythm without murmurs. LUNGS: Clear to auscultation bilaterally. ABDOMEN: Soft, positive bowel sounds, nontender, no organomegaly.no flank tenderness--hernia noted SKIN: No rash, no excessive bruising, petechiae, or purpura. NEUROLOGIC: Cranial nerves II-XII intact without motor/sensory deficit. Objective Data Labs 07/24/23 06:18 07/24/23 06:18 Labs: Laboratory Results - last 24 hr 07/24/23 07/24/23 06:18 06:18 WBC 8.5 RBC 3.46 L Hgb 9.8 L Hct 29.7 L MCV 85.8 MCH 28.3 MCHC 33.0 RDW 18.6 H Plt Count 127 L D MPV 9.7 Absolute Nucleated RBC 0.000 Nucleated RBC % (auto) 0.0 Sodium 139 Potassium 3.2 L Chloride 111 H Carbon Dioxide 21 L Anion Gap 10 L BUN 13 Creatinine 0.82 Estim Creat Clear Calc 92.4 Estimated GFR > 60 Random Glucose 89 Calcium 8.3 L Total Bilirubin 9.4 H Direct Bilirubin 6.9 H AST 61 H ALT 30 Alkaline Phosphatase 332 H Total Protein 5.1 L Albumin 2.4 L Microbiology Microbiology Results: Microbiology 07/21/23 06:52 Blood - Venous Blood Culture - Preliminary No growth after 48 hours. 07/21/23 07:03 Blood - Venous Blood Culture - Preliminary No growth after 48 hours. 07/21/23 Unknown Urine Catheterized - Straight Catheter Urine Culture - Final Procedures Date of Service Date of Service: 07/24/23 Progress Note: A&P Assessment and plan (1) Acute blood loss anemia: Status: Acute (2) Ischemia reperfusion injury of liver: Status: Acute Plan 1/ Rectal bleeding, on background of eliquis use caused by rectal enemas, possibly may have radiation colopathy 2/ Liver injury likely ischemic, labs improving, not likely due to PVT PLAN: 1/ Sigmoidoscopy today for further assessment, if RAVE noted then can treat or use steroid enemas 2/ hold AC for the meantime Time Spent With Patient Time: Total time managing care of this patient today ____ minutes. Quality Stroke Does the patient have a stroke diagnosis?: No VTE Prior VTE?: No VTE Risk Level:: Medical - moderate - high VTE Device Contraindication: Treatment Not Indicated VTE Drug Contraindication: N/A - Med Ordered
--- NOTE | 2023-07-24 15:33 | MHC.SHP ---
Pre-Procedural Eval Section A Date of Service: 07/24/23 The patient is an INPATIENT: Yes The History & Physical has been completed within 30 days and I have reviewed it.: Yes Section B Chief Complaint: Abdominal Pain Allergies: Allergies Allergy/AdvReac Type Severity Reaction Status Date / Time Penicillins Allergy Unknown Verified 07/20/23 04:26 Plan Diagnosis/Plan: Unchanged I have reviewed the history and physical and performed a pertinent physical examination on my patient. No changes have occurred unless specified. Time Spent With Patient Time: Total time managing care of this patient today ____ minutes.
--- NOTE | 2023-07-24 15:34 | W.PM.OPN ---
Operative Note Operative Note Date of Service: 07/24/23 Narrative: Operative Information Procedure Description: sigmoidoscopy Indication: rectal bleeding Anesthesia: MAC Sigmoidoscopy Instrument:pediatric colonoscope Colonoscopy Monitoring: Vital signs and clinical assessment, continuous EKG monitoring, Pulse oximetry, Carbon Dioxide monitoring and blood pressure monitoring were done throughout the procedure. Procedure: The patient was placed in the left lateral decubitis position and pre-procedure medications were administered. After a digital rectal examination of the ano-rectum, the video colonoscope was inserted into the rectum and advanced through the colon to the transverse colon. The scope was slowly withdrawn in a retrograde panoramic fashion and the colon mucosa was carefully examined including a retroflexed view of the rectum. Findings and interventions are described below. Procedure Difficulty: easy Findings: Descending Colon:normal Sigmoid Colon: normal, greenish stool noted, no blood Rectum: Retroflexion with medium sized internal hemorrhoids, grade I, rectal ulcer noted in distal rectum-measured about 8-10 mm, with red marie and inflammed edges, x 3 clips applied with some ozzing, hemospray was then applied with good effect, also small erosion noted as well. Anorectum - normal Colon preparation:good Impression and Post Procedure Diagnosis: rectal ulcer and erosion probably secondary to constipation Plan: monitor H/H and stool output if stable can restart anti coagulation in 48 hours or so avoid constipation, can use stool softener and laxative, avoid enemas Above findings were reviewed with the patient and relevant handouts were provided if indicated.
--- NOTE | 2023-07-24 15:35 | P.CONAN_ITS ---
HPI - Anesthesia Eval Consult details Narrative: 63 M for Flex sig Denies any chest pain Heart failure , NC s/p stent placement few years ago and PPM. Metastatic Colon CA with mets to liver, s/p 4 units transfusion and 3 units FFP portal vein thrombosis, Mild Hypernatremia, Na of 138 hypokalemia, K of 3.2, s/p replacement Case discussed with Dr Harris and the hospitalist . [facility] Active Problems Active Problems: All Active Problems (Updated 07/24/23 @ 15:31 by Tegan Harris MD) Ischemia reperfusion injury of liver (Acute) GI bleed (Acute) Acute blood loss anemia (Acute) Hypertension (Acute) Anticoagulant long-term use (Acute) Encephalopathy due to ammonia (Acute) SBO (small bowel obstruction) (Acute) Metastatic colon cancer to liver (Acute) Past Medical History Medical History Anticoagulant long-term use Hypertension Family History Family history of problems with anesthesia: No Surgical History History of Problems with Anesthesia: No Social History Social History Household Members: Other Household Members Other:: mother Housing: Condominium Do you presently have visiting nurse or other home services: No Patient Tobacco Use Status: Never used Tobacco Meds Allergies Allergy/AdvReac Type Severity Reaction Status Date / Time Penicillins Allergy Unknown Verified 07/20/23 04:26 Active Medications: Current Medications Acetaminophen (Acetaminophen Supp 650 Mg Supp.Rect) 650 mg MS Q6H PRN PRN Reason: Pain, Mild (Pain Scale 1-3) Enoxaparin Sodium (Enoxaparin Sodium 40 Mg/0.4 Ml Syringe) 90 mg SUBCUT Q12H PRIYA Last Admin: 07/21/23 04:29 Dose: 90 mg Ceftriaxone Sodium 1 gm/ (Sodium Chloride) 50 mls @ 100 mls/hr IV Q24H PRIYA Last Infusion: 07/24/23 08:34 Dose: Infused Dextrose/Sodium Chloride (D51/4ns) 1,000 mls @ 100 mls/hr IVCONT .Q10H PRIYA Last Infusion: 07/24/23 14:31 Dose: 0 mls/hr Lactulose (Lactulose 320 Gm/480 Ml Solution) 200 gm MS Q6H PRIYA Last Admin: 07/24/23 06:19 Dose: Not Given Metoprolol Tartrate (Metoprolol Tartrate 5 Mg/5 Ml Vial) 5 mg IVPUSH Q6H PENDING SALE TO [facility] Last Admin: 07/24/23 09:31 Dose: 5 mg Ondansetron HCl (Ondansetron Hcl 4 Mg/2 Ml Vial) 4 mg IVPUSH Q8H PRN PRN Reason: Nausea and Vomiting Sodium Chloride (0.9 % Sodium Chloride Flush 3 Ml Syringe) 3 ml IVFLUSH QSHIFT PENDING SALE TO [facility] Last Admin: 07/24/23 09:33 Dose: 3 ml Home Medications Medication Instructions Recorded Confirmed Last Taken Type apixaban 5 mg tablet (Eliquis) 5 mg PO BID 07/20/23 07/20/23 07/19/23 History lorazepam 0.5 mg tablet 0.5 mg PO BID PRN Anxiety 07/20/23 07/20/23 Unknown History metoprolol succinate 25 mg 25 mg PO DAILY 07/20/23 07/20/23 07/18/23 History tablet,extended release 24 hr sacubitril 49 mg-valsartan 51 mg 1 tab PO BID 07/20/23 07/20/23 07/19/23 History tablet (Entresto) sildenafil 100 mg tablet 100 mg PO DAILY PRN Erectile 07/20/23 07/20/23 Unknown History Dysfunction Exam Exam Date and Time: July 24, 2023 1535 Height,Weight and Vital Signs: Height 5 ft 2 in Weight 93 kg Last Vital Signs Temp 97.5 F 07/24/23 14:42 Pulse 85 07/24/23 14:42 Resp 18 07/24/23 14:42 BP 104/71 07/24/23 14:42 Pulse Ox 97 07/24/23 14:42 O2 Del Method Room Air 07/24/23 14:42 O2 Flow Rate 60 07/21/23 18:53 FiO2 72.0 07/21/23 18:57 Pertinent Lab Results Pertinent Lab Results: Laboratory Tests 07/20/23 07/20/23 07/20/23 05:16 05:16 05:16 WBC 8.8 RBC 4.94 Hgb 13.6 L Hct 41.8 L MCV 84.6 MCH 27.5 MCHC 32.5 RDW 19.9 H Plt Count 252 MPV 9.6 Immature Gran % (Auto) 0.3 Neut % (Auto) 79.5 H Lymph % (Auto) 9.5 L Petroleum % (Auto) 9.1 Eos % (Auto) 1.1 Baso % (Auto) 0.5 Lymph # (Auto) 0.8 L Petroleum # (Auto) 0.8 Eos # (Auto) 0.1 Baso # (Auto) 0.0 Abs Immat Gran (auto) 0.03 Absolute Neuts (auto) 7.0 Absolute Nucleated RBC 0.000 Nucleated RBC % (auto) 0.0 PT 17.3 H INR 1.4 H APTT 35.0 Sodium Potassium Chloride Carbon Dioxide Anion Gap BUN Creatinine Estim Creat Clear Calc Estimated GFR Random Glucose Calcium Magnesium Total Bilirubin Direct Bilirubin AST ALT Alkaline Phosphatase Ammonia 146 H Total Protein Albumin Lipase Urine Color Urine Appearance Urine pH Ur Specific [place] Urine Protein Urine Glucose (UA) Urine Ketones Urine Blood Urine Nitrite Ur Leukocyte Esterase Urine RBC Urine WBC Ur Squamous Epith Cells Urine Bacteria Hyaline Casts Ethyl Alcohol Blood Type Antibody Screen Crossmatch 07/20/23 07/20/23 07/21/23 05:16 05:16 05:04 WBC RBC Hgb Hct MCV MCH MCHC RDW Plt Count MPV Immature Gran % (Auto) Neut % (Auto) Lymph % (Auto) Petroleum % (Auto) Eos % (Auto) Baso % (Auto) Lymph # (Auto) Petroleum # (Auto) Eos # (Auto) Baso # (Auto) Abs Immat Gran (auto) Absolute Neuts (auto) Absolute Nucleated RBC Nucleated RBC % (auto) PT INR APTT Sodium 138 Potassium 4.1 Chloride 102 Carbon Dioxide 21 L Anion Gap 19 BUN 11 Creatinine 1.09 Estim Creat Clear Calc 69.1 Estimated GFR > 60 Random Glucose 113 Calcium 10.2 Magnesium 2.2 2.3 Total Bilirubin 10.5 H Direct Bilirubin AST 135 H ALT 63 H Alkaline Phosphatase 643 H Ammonia Total Protein 8.1 H Albumin 3.7 Lipase 60 Urine Color Dark Yellow Urine Appearance Cloudy Urine pH 5.5 Ur Specific [place] 1.020 Urine Protein 30 (1+) H Urine Glucose (UA) Negative Urine Ketones Trace Urine Blood Negative Urine Nitrite Positive H Ur Leukocyte Esterase Small (1+) H Urine RBC 3-5 H Urine WBC 6-10 H Ur Squamous Epith Cells 0-2 Urine Bacteria None Seen Hyaline Casts 6-10 Ethyl Alcohol < 10 Blood Type Antibody Screen Crossmatch 07/21/23 07/21/23 07/21/23 05:59 05:59 08:35 WBC 8.4 RBC 3.72 L D Hgb 10.3 L D Hct 32.3 L D MCV 86.8 MCH 27.7 MCHC 31.9 RDW 20.4 H Plt Count 208 MPV 10.5 Immature Gran % (Auto) Neut % (Auto) Lymph % (Auto) Petroleum % (Auto) Eos % (Auto) Baso % (Auto) Lymph # (Auto) Petroleum # (Auto) Eos # (Auto) Baso # (Auto) Abs Immat Gran (auto) Absolute Neuts (auto) Absolute Nucleated RBC 0.000 Nucleated RBC % (auto) 0.0 PT INR APTT Sodium 142 Potassium 3.6 Chloride 113 H Carbon Dioxide 22 Anion Gap 11 L BUN 10 Creatinine 0.97 Estim Creat Clear Calc 78.1 Estimated GFR > 60 Random Glucose 115 Calcium 8.3 L D Magnesium Total Bilirubin Direct Bilirubin AST ALT Alkaline Phosphatase Ammonia Total Protein Albumin Lipase Urine Color Urine Appearance Urine pH Ur Specific [place] Urine Protein Urine Glucose (UA) Urine Ketones Urine Blood Urine Nitrite Ur Leukocyte Esterase Urine RBC Urine WBC Ur Squamous Epith Cells Urine Bacteria Hyaline Casts Ethyl Alcohol Blood Type B Negative Antibody Screen NEGATIVE Crossmatch See Detail 07/21/23 07/21/23 07/22/23 13:16 21:16 05:52 WBC 8.6 8.6 9.5 RBC 3.80 L 3.80 L 3.87 L Hgb 10.5 L 10.7 L 10.7 L Hct 33.2 L 33.7 L 34.0 L MCV 87.4 88.7 87.9 MCH 27.6 28.2 27.6 MCHC 31.6 31.8 31.5 RDW 20.5 H 19.9 H 19.6 H Plt Count 217 199 198 MPV 9.7 10.2 10.0 Immature Gran % (Auto) Neut % (Auto) Lymph % (Auto) Petroleum % (Auto) Eos % (Auto) Baso % (Auto) Lymph # (Auto) Petroleum # (Auto) Eos # (Auto) Baso # (Auto) Abs Immat Gran (auto) Absolute Neuts (auto) Absolute Nucleated RBC 0.000 0.000 0.000 Nucleated RBC % (auto) 0.0 0.0 0.0 PT INR APTT Sodium Potassium Chloride Carbon Dioxide Anion Gap BUN Creatinine Estim Creat Clear Calc Estimated GFR Random Glucose Calcium Magnesium Total Bilirubin Direct Bilirubin AST ALT Alkaline Phosphatase Ammonia Total Protein Albumin Lipase Urine Color Urine Appearance Urine pH Ur Specific [place] Urine Protein Urine Glucose (UA) Urine Ketones Urine Blood Urine Nitrite Ur Leukocyte Esterase Urine RBC Urine WBC Ur Squamous Epith Cells Urine Bacteria Hyaline Casts Ethyl Alcohol Blood Type Antibody Screen Crossmatch 07/22/23 07/22/23 07/23/23 05:52 15:51 06:06 WBC 11.8 H RBC 3.87 L Hgb 10.9 L Hct 34.7 L MCV 89.7 MCH 28.2 MCHC 31.4 RDW 19.9 H Plt Count 206 MPV 9.9 Immature Gran % (Auto) Neut % (Auto) Lymph % (Auto) Petroleum % (Auto) Eos % (Auto) Baso % (Auto) Lymph # (Auto) Petroleum # (Auto) Eos # (Auto) Baso # (Auto) Abs Immat Gran (auto) Absolute Neuts (auto) Absolute Nucleated RBC 0.000 Nucleated RBC % (auto) 0.0 PT INR APTT Sodium 146 H 143 Potassium 4.0 3.2 L Chloride 116 H 114 H Carbon Dioxide 23 19 L Anion Gap 11 L 13 BUN 13 15 Creatinine 0.87 0.75 Estim Creat Clear Calc 87.1 101.0 Estimated GFR > 60 > 60 Random Glucose 114 89 Calcium 8.5 8.2 L Magnesium 1.6 Total Bilirubin 17.4 H 11.7 H Direct Bilirubin 12.1 H 8.2 H AST 64 H 61 H ALT 34 33 Alkaline Phosphatase 392 H 320 H Ammonia Total Protein 5.5 L 4.9 L Albumin 2.7 L 2.4 L Lipase Urine Color Urine Appearance Urine pH Ur Specific [place] Urine Protein Urine Glucose (UA) Urine Ketones Urine Blood Urine Nitrite Ur Leukocyte Esterase Urine RBC Urine WBC Ur Squamous Epith Cells Urine Bacteria Hyaline Casts Ethyl Alcohol Blood Type Antibody Screen Crossmatch 07/24/23 07/24/23 06:18 06:18 WBC 8.5 RBC 3.46 L Hgb 9.8 L Hct 29.7 L MCV 85.8 MCH 28.3 MCHC 33.0 RDW 18.6 H Plt Count 127 L D MPV 9.7 Immature Gran % (Auto) Neut % (Auto) Lymph % (Auto) Petroleum % (Auto) Eos % (Auto) Baso % (Auto) Lymph # (Auto) Petroleum # (Auto) Eos # (Auto) Baso # (Auto) Abs Immat Gran (auto) Absolute Neuts (auto) Absolute Nucleated RBC 0.000 Nucleated RBC % (auto) 0.0 PT INR APTT Sodium 139 Potassium 3.2 L Chloride 111 H Carbon Dioxide 21 L Anion Gap 10 L BUN 13 Creatinine 0.82 Estim Creat Clear Calc 92.4 Estimated GFR > 60 Random Glucose 89 Calcium 8.3 L Magnesium Total Bilirubin 9.4 H Direct Bilirubin 6.9 H AST 61 H ALT 30 Alkaline Phosphatase 332 H Ammonia Total Protein 5.1 L Albumin 2.4 L Lipase Urine Color Urine Appearance Urine pH Ur Specific [place] Urine Protein Urine Glucose (UA) Urine Ketones Urine Blood Urine Nitrite Ur Leukocyte Esterase Urine RBC Urine WBC Ur Squamous Epith Cells Urine Bacteria Hyaline Casts Ethyl Alcohol Blood Type Antibody Screen Crossmatch Narrative Narrative: EKG 07/20/2023 ? Atrial-sensed ventricular-paced rhythm Abnormal ECG No previous ECGs available Airway Mallampati Class: III Loose/Missing/Broken Teeth: Yes Assessment and Plan Assessment Anesthesia Assessment: Anesthesia Plan Discussed and Chart Reviewed Final Anesthetic Review Family History of Problems with Anesthesia: No History of Problems with Anesthesia: No NPO: Yes ASA Class: IV and Emergency Final Preanesthetic Review: Meds/Allgs Chart Reviewed, Consent Obtained/Reviewed and Anes Risks/Benef Reviewed Patient Risk: High Procedure Risk: Intermediate Anesthetic Plan Anesthetic Plan: MAC: Disposition: Inp. Admit - IMC
[2023-07-25] VITALS: BP 99/57; PULSE 89; RESP 16; TEMP 37; O2SAT 98
[2023-07-25] MEDS: Dextrose 5 % and 0.2 % NaCl 1,000 ML 100 ML IVCONT (00:13)
[2023-07-25] MEDS: 0.9 % Sodium Chloride Flush 3 ML SYRINGE IVFLUSH (00:13)
[2023-07-25 04:00] VITALS: BP 123/63; PULSE 88; RESP 15; TEMP 36.9; O2SAT 98
[2023-07-25] MEDS: Metoprolol Tartrate 5 MG/5 ML VIAL IVPUSH ×2 (05:21→10:18)
[2023-07-25] MEDS: cefTRIAXone sodium 1 GM in 0.9 % Sodium Chloride 50 ML IV (05:26)
[2023-07-25 07:16] LABS: Hematocrit 29.7 % (42.0-52.0); Hemoglobin 9.6 g/dl (14.0-18.0); Mean Corpuscular HGB Conc 32.3 g/dl (31.0-36.0); Mean Corpuscular Hemoglobin 28.7 pg (27.0-33.0); Mean Corpuscular Volume 88.7 fL (80.0-98.0); Mean Platelet Volume 10.9 fL (9.4-12.4); Platelet Count 130 X10*3/uL (160-400); Red Blood Count 3.35 X10*6/uL (4.60-5.80); Red Cell Distribution Width 18.9 % (11.0-16.0)
[2023-07-25 07:24] LABS: Anion Gap 11 (12-20); Blood Urea Nitrogen 11 mg/dL (9-16); Calcium 8.1 mg/dL (8.4-10.2); Carbon Dioxide 22 mmol/L (22-29); Chloride 108 mmol/L (96-108); Creatinine Clr Calc Pharmacy 90.2; Estimated Glomerular Filt Rate > 60; Glucose Random 94 mg/dL (60-115); Potassium 3.7 mmol/L (3.3-5.1); Sodium 137 mmol/L (135-145)
[2023-07-25 07:28] LABS: Alanine Aminotransferase 30 U/L (0-40); Albumin Level 2.4 g/dL (3.5-5.0); Alkaline Phosphatase 379 U/L (39-117); Aspartate Amino Transferase 69 U/L (5-37); Bilirubin Direct 6.5 mg/dL (0.0-0.5); Bilirubin Total 8.3 mg/dL (0.0-1.0); Total Protein 5.1 g/dL (6.5-8.0)
[2023-07-25 07:40] VITALS: BP 123/74; PULSE 93; RESP 18; TEMP 36.3; O2SAT 100
--- NOTE | 2023-07-25 11:01 | MHC.CM.PN ---
PER HOSPITALIST PT TO BE MEDICALLY CLEARED FOR D/C BACK TO PT'S MOTHERS HOME W/PLAN TO RETURN TO [facility] FOR TRANSPORT.
--- NOTE | 2023-07-25 11:11 | PM.DS ---
DS: Providers Provider Date of Service: 07/25/23 Date of admission: 07/20/23 07:28 Primary care physician: Unknown Physician Consults: 07/20/23 06:13 Consult to General Surgery Stat Consulting Provider: [facility] Reason for consultation: SBO, mets colon ca Has provider been notified: Yes 07/20/23 07:30 Consult to General Surgery Routine Consulting Provider: [facility] Reason for consultation: SBO w transitional point Has provider been notified: Yes 07/21/23 07:43 Consult to Gastroenterology Routine Consulting Provider: Tegan Harris Reason for consultation: GI bleed w anemia for eval and rec. DS: Diagnosis Discharge Diagnosis (1) Acute blood loss anemia: Status: Acute (2) Ischemia reperfusion injury of liver: Status: Acute DS: Summary Hospital Course Hospital Course: from initial hpi: 63 years old male with PMH of Metastatic Colon CA to liver, HTN , PPM on blood thinners who presents to the hospital with abdominal pain and altered mentation. He is visiting from [place], taken a vacation of chemotherapy and came to visit his GF who reports for the last 2 days he has been complaining of worsening pain, nausea and vomiting with no change in bowel habit or fever. She noticed his mentation becoming more altered so he was brought to ED for further eval. CT Scan showed SBO w transitional point but his HCP wants to try supportive measures at this point and avoid surgery. surgical team seems to agree with that. Ammonia of 125 with altered mentation and agitation. Admitted for further eval and treatment. hospital course: Patient was admitted for acute metabolic encephalopathy due to acute liver failure in the setting of colon cancer with liver metastasis. He responded to lactulose and IV hydration. LFTs improving, mental status back to baseline. Course complicated by acute blood loss anemia. Sigmoidoscopy revealed rectal ulcer. Transfused 4 units. Hemoglobin stabilized. No further bleeding. There was a question small-bowel obstruction, patient's diet was advanced as tolerated. Mild hypernatremia resolved with IV fluids. Acute hypokalemia resolved with potassium. For chronic systolic CHF status post ICD will continue metoprolol, Entresto. Eliquis on hold for bleed. Patient will be discharged home to continue with oncology follow-up at [place]. Time Spent with Patient Time attestation: Total time managing care of this patient today ____ minutes. Discharge coordination time: Greater than 30 minutes Quality: Safe Use of Opioids Does Pt have an Active Cancer Diagnosis on the Problem List?: Yes Opioid Measure Date for [facility] Report: 06/25/23 Opioid Measure Time for [facility] Report: 11:11 Quality: Stroke Does the patient have a stroke diagnosis?: No Physical Exam Vital Signs: Vital Signs: Last Vital Signs Temp 97.3 F 07/25/23 07:40 Pulse 93 07/25/23 07:40 Resp 18 07/25/23 07:40 BP 123/74 07/25/23 07:40 Pulse Ox 100 07/25/23 07:40 O2 Del Method Room Air 07/25/23 07:40 O2 Flow Rate 60 07/21/23 18:53 FiO2 72.0 07/21/23 18:57 BMI result Body Mass Index 37.5 General: AO X 3, no acute distress, jaundiced Resp: CTA bilateral, no accessory muscles used CVS: S1,S2,RRR GI: soft, non tender,distended Neuro: motor grossly intact, alert Psych: appropriate affect, appropriate insight DS: Data Data Completed and Pending Labs on day of discharge: Laboratory Results - last 24 hr 07/25/23 07/25/23 07/25/23 06:23 06:23 06:23 WBC 8.0 RBC 3.35 L Hgb 9.6 L Hct 29.7 L MCV 88.7 MCH 28.7 MCHC 32.3 RDW 18.9 H Plt Count 130 L MPV 10.9 Absolute Nucleated RBC 0.000 Nucleated RBC % (auto) 0.0 Sodium 137 Potassium 3.7 Chloride 108 Carbon Dioxide 22 Anion Gap 11 L BUN 11 Creatinine 0.84 Estim Creat Clear Calc 90.2 Estimated GFR > 60 Random Glucose 94 Calcium 8.1 L Total Bilirubin 8.3 H Direct Bilirubin 6.5 H AST 69 H ALT 30 Alkaline Phosphatase 379 H Total Protein 5.1 L Albumin 2.4 L Preliminary micro results at discharge 07/21/23 06:52 Blood Culture - Preliminary Blood - Venous No growth after 48 hours. 07/21/23 07:03 Blood Culture - Preliminary Blood - Venous No growth after 48 hours. Discharge Plan Discharge Anticipated Discharge Date/Time: 07/25/23 11:10 Patient Disposition: Home, Self-Care Discharge Diagnosis: acute liver injury in background of liver mets Referrals: Physician,Unknown J [Primary Care Provider] - 1 Week Discharge Medications: Continued sildenafil 100 mg tablet 100 mg PO DAILY PRN (Reason: Erectile Dysfunction) lorazepam 0.5 mg tablet 0.5 mg PO BID PRN (Reason: Anxiety) Eliquis 5 mg tablet 5 mg PO BID Entresto 49-51 mg tablet 1 tab PO BID metoprolol succinate 25 mg tablet extended release 24 hr 25 mg PO DAILY Discharge Orders: Discharge Order (Routine); Ordered 07/25/23 Ordered By: Leon Polk Diet: Advance to usual diet Activity on Discharge: As tolerated Stand Alone Forms: Patient Portal Discharge page, Work/School Release Care Plan Goals: manage liver mets Health Concerns: liver mets Plan of Treatment: follow up with oncology in [place] Assessment: see above
--- NOTE | 2023-07-25 14:16 | HO.POSTANES ---
Post Anesthesia Evaluation Post Anesthesia Evaluation Date of Service: 07/25/23 Vital Signs: Vital Signs Temp Pulse Resp BP Pulse Ox O2 Del Method 07/25/23 07:40 97.3 F 93 18 123/74 100 Room Air 07/25/23 04:00 98.5 F 88 15 123/63 98 Room Air Anesthesia: Monitored Mental Status: Awake Pain Control: Satisfactory Nausea/Vomiting: None Hydration: Adequate Anesthesia-Related Issues: No Anes. Related Issues
--- NOTE | 2023-07-30 21:43 | P.CDIM_ITS ---
PROVIDER RESPONSE TEXT: To clarify, the appropriate diagnosis supported by the clinical indicators: Partial SBO QUERY TEXT: PHYSICIAN'S DOCUMENTATION REQUEST Date of Query: 07/23/2023 02:16 PM EDT Patient Name: Gilberto López Admit Date: 07/20/2023 Dear Dax Herrera, A review of the medical record indicates additional documentation may be needed. Please review below and update the documentation accordingly. Clinical Indicators: Per Hospitalist Progress Note 07/23/23: Small bowel obstruction has slow bowel sounds today and passing gas CT reporting transition point , repeat AXR showing intestinal dilatation Surgery following; conservative measures, remove NG IVF NPO w sips of liquids, advance diet as tolerated Based on the above, could you clarify the appropriate diagnosis, if significant, that supports the ab ove abnormalities and additional evaluation, monitoring, and/or treatment rendered: Partial SBO Complete SBO Other (explain)Clinically unable to determine (explain)Thank you, Elli Collier RN Use of terms such as suspected, likely, concern for, or probable (associated with a specific diagnosi s that is being evaluated, monitored, or treated as if it exists) are acceptable and can be coded in the inpatient se tting, when documented at the time of discharge. Please use your independent medical judgment in providing your response. THIS QUERY IS PART OF THE PERMANENT MEDICAL RECORD
== END 2023-07-25 13:30 | disposition home or self-care (01) | DRG 393 ==
LOC: HO.ED 06:53 → HO.EDOVER 07:35 → HO.IMC 12:42
PROVIDERS: Internal Medicine; Internal Medicine Gastroenterology; Student in an Organized Health Care Education/Training Program; Admitting Provider Student in an Organized Health Care Education/Training Program; Emergency Provider Emergency Medicine Emergency Medical Services; Visit Provider Internal Medicine
PROC: 0DJD8ZZ Inspection of Lower Intestinal Tract, Via Natural or Artificial Opening Endoscopic (ICD-10-PCS; CPT 45330; principal; 2023-07-24 16:00)
DX: K62.6 Ulcer of anus and rectum (principal); G93.41 Metabolic encephalopathy; K72.00 Acute and subacute hepatic failure without coma; C18.9 Malignant neoplasm of colon, unspecified; C78.7 Secondary malignant neoplasm of liver and intrahepatic bile duct; D62 Acute posthemorrhagic anemia; I50.22 Chronic systolic (congestive) heart failure; E87.0 Hyperosmolality and hypernatremia; K62.5 Hemorrhage of anus and rectum; K56.600 Partial intestinal obstruction, unspecified as to cause; K64.8 Other hemorrhoids; E87.6 Hypokalemia; I11.0 Hypertensive heart disease with heart failure; Z95.0 Presence of cardiac pacemaker; K76.82 Hepatic encephalopathy; D63.0 Anemia in neoplastic disease; Z79.01 Long term (current) use of anticoagulants; Z79.899 Other long term (current) drug therapy
CPT/HCPCS: 36415; 71045; 74018; 74176; 74177; 76705; 78278; 80048; 80053; 80076; 80307; 81001; 82140; 83690; 83735; 85025; 85027; 85610; 85730; 86850; 86900; 86901; 86923; 87040; 87086; 93005; 97161; 99285; A9512; J0696; J1650; J2270; J3430; P9016; P9017; Q9967

== ENCOUNTER → 2023-07-20 07:28 | Outpatient (BNV) | payer OTHER, SELFPAY | PROVIDERS: Admitting Provider Student in an Organized Health Care Education/Training Program; Emergency Provider Emergency Medicine Emergency Medical Services; Visit Provider Internal Medicine Gastroenterology | DX: D62 Acute posthemorrhagic anemia (principal); K91.81 Other intraoperative complications of digestive system; K62.6 Ulcer of anus and rectum; K64.0 First degree hemorrhoids | CPT/HCPCS: 45334; 99222; 99232 ==

== ENCOUNTER → 2023-07-20 07:28 | Outpatient (BNV) | payer OTHER, SELFPAY | PROVIDERS: Admitting Provider Student in an Organized Health Care Education/Training Program; Emergency Provider Emergency Medicine Emergency Medical Services; Visit Provider Student in an Organized Health Care Education/Training Program | DX: D62 Acute posthemorrhagic anemia (principal); K91.81 Other intraoperative complications of digestive system | CPT/HCPCS: 99223; 99233; 99239; 99499 ==

== ENCOUNTER → 2023-07-20 07:28 | Outpatient (BNV) | payer OTHER, SELFPAY | PROVIDERS: Admitting Provider Student in an Organized Health Care Education/Training Program; Emergency Provider Emergency Medicine Emergency Medical Services; Visit Provider Surgery | DX: K56.609 Unspecified intestinal obstruction, unspecified as to partial versus complete obstruction (principal) | CPT/HCPCS: 99222; 99231; 99232; 99499 ==